=== PATIENT | female | born 1960 | race Caucasian/White ===

== ENCOUNTER 2020-06-15 10:16 | Outpatient (RCR) | payer OTHER, SELFPAY ==
--- NOTE | 2020-06-15 16:49 | PTOPEVAL ---
INITIAL PHYSICAL THERAPY EVALUATION and PLAN OF CARE Thank you for referring Natalya Tran to [facility].? Soledad is scheduled to be seen for physical therapy? 1x/week for 6 weeks. Please review, sign, date and return this plan of care ANJU. I agree with and certify that the following plan of care is medically necessary. Referring Physician Date Admitting Provider: Attending Provider: Marianna Lloyd DO Referring Provider: *PT Outpatient Evaluation Start: 06/15/20 10:37 Freq: Status: Active Protocol: Document 06/15/20 10:30 CECILIA (Rec: 06/15/20 12:06 CECILIA [id number]) Therapy Assessment Status Assessment Status Assessment Status Evaluation Outpatient Past Medical History Past Medical History Source of Past Medical History Patient Neurological History Hx Neurological Disorders No Significant History Cardiovascular History Hx Coronary Artery Bypass Graft Yes: 2008 4 CABG, 2013 4x CABG with mitral valve repair Hx Myocardial Infarction Yes Respiratory History Hx Pneumonia Yes: x2 Gastrointestinal History Hx Appendectomy Yes: as a child Hx Cholecystectomy Yes: in her late 20's,early 30 's Hx Gastroesophageal Reflux Disease Yes Musculoskeletal History Hx Joint Replacement Yes: R YESSICA Endocrine History Hx Hypothyroidism Yes HEENT History Hx Other HEENT Disorders Yes: tinnitius Reproductive History Hx Hysterectomy Yes: partial - with bladder suspension surgery Hx Tubal Ligation Yes Other History Hx MRSA Yes Hx Other Surgeries Yes: groin abcess - open wound x 11 months 06/2019 Evaluation Information Problem Diagnosis mixed urinary incontinence Onset 2019 Subjective Information pelvic exam last month - was Query Text:As Reported By Patient/ told that she has a prolapse, Family vaginal ultrasound - was informed that cyst on R ovary was gone Did have R groin discomfort, now more L sided discomfort and lower back pain . If sitting - if she feels the urge - when goes to sit up - will become incontinent - unable to stop flow. If standing up - if feels urge - depends on how much she has had to drink and when the last time she has gone - if she makes it to
--- NOTE | 2020-07-02 12:52 | PCPTNOTE ---
PHYSICAL THERAPY DISCHARGE SUMMARY Admitting Provider: Attending Provider: Marianna Lloyd DO Patient:Natalya Tran Date of :1960 Soledad has not returned for any further treatments since 06/15/2020. She called to cancel all of her appointments due to transportation issues. She was only seen for her initial evaluation. She will be discharged at this time. The goals have been not met. Thank you for referring Soledad to [facility]. Please review, sign, date and return this discharge summary ANJU. I have been updated about Soledad's current status and I agree with discharge from the above service at this time. Referring Physician Date
== END 2020-07-06 11:12 | disposition home or self-care (01) ==
LOC: ANHPT 10:16
PROVIDERS: PCP Internal Medicine; Visit Provider Obstetrics & Gynecology
DX: N39.46 Mixed incontinence (principal)
CPT/HCPCS: 97110; 97162

== ENCOUNTER 2022-06-06 09:35 | Outpatient (CLI) | payer OTHER, SELFPAY ==
[2022-06-06 20:51] LABS: Thyroid Stimulating Hormone Reflex 0.134 uIU/mL (0.465-4.68)
[2022-06-07 05:39] LABS: Free T4 Free Thyroxine Reflex 1.66 ng/dL (0.78-2.19)
[2022-06-07 07:21] LABS: Total Triiodothyronine (T3) 1.18 NG/ML (0.97-1.69)
== END 2022-06-06 09:36 | disposition home or self-care (01) ==
LOC: ANHGOSHLAB 09:42
PROVIDERS: PCP Family Medicine; Visit Provider Family Medicine
DX: E07.9 Disorder of thyroid, unspecified (principal)
CPT/HCPCS: 36415; 84439; 84443; 84480

== ENCOUNTER → 2022-06-06 09:53 | Outpatient (CLI) | payer OTHER, SELFPAY ==
--- NOTE | ~2022-06-06 | XR_ITS ---
EXAMINATION: XR hand LT min 3V, XR hand RT min 3V DATE: 06/06/2022 10:06 INDICATION: Finger pain TECHNIQUE: 1. Posteroanterior, oblique and lateral views of the left hand were obtained. 2. Posteroanterior, oblique and lateral views of the right hand were obtained. COMPARISON: None. FINDINGS: Alignment is normal at the bilateral hands and wrists. No fractures. Advanced osteoarthritis at the l eft first carpal metacarpal joint with remodeling of both the trapezium and base of the first metacar pal. Moderate osteoarthritis at the contralateral right first carpal metacarpal joint. Additional rel atively symmetric bilateral mild polyarticular osteoarthritis at the bilateral triscaphe, first and s econd metacarpophalangeal and a few distal interphalangeal joints. Mild likely degenerative cystic ch matthieu within sclerotic margins at the left lunate. Small amount of chondrocalcinosis at the ulnar side of the right wrist joint. No erosions to suggest an inflammatory arthritis. IMPRESSION: 1. Advanced osteoarthritis at the left and moderate osteoarthritis at the right first carpal metacarp al joints with otherwise typical pattern of mild polyarticular osteoarthritis at the bilateral hands. Reviewed, dictated and finalized at location A. IMPRESSION: 1. Advanced osteoarthritis at the left and moderate osteoarthritis at the right first carpal metacarpal joints with otherwise typical pattern of mild polyarti cular osteoarthritis at the bilateral hands.
== END ==
PROVIDERS: PCP Family Medicine; Visit Provider Family Medicine
DX: M19.041 Primary osteoarthritis, right hand (principal); M19.042 Primary osteoarthritis, left hand
CPT/HCPCS: 73130

== ENCOUNTER → 2022-07-22 10:28 | Outpatient (CLI) | payer OTHER, SELFPAY ==
--- NOTE | ~2022-07-22 | MM_ITS ---
EXAMINATION: MM screening isai BI w alexa HISTORY: Screening TECHNIQUE: Craniocaudal and mediolateral oblique 3-D tomosynthesis images were obtained and synthetic 2-D images were generated. CAD analysis was submitted and interpreted. COMPARISON: No prior mammogram is available for comparison at this institution. BREAST PARENCHYMAL COMPOSITION: The breasts are almost entirely fatty. FINDINGS: There is no evidence of suspicious mass, calcification, or architectural distortion to sugg est malignancy in either breast. There has been no suspicious interval change. IMPRESSION: 1. No mammographic evidence of malignancy. 2. Recommend routine screening mammography in one year. BI-RADS Category 1: Negative Reviewed, dictated and finalized at location B. 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
== END ==
PROVIDERS: PCP Family Medicine; Visit Provider Family Medicine
DX: Z12.31 Encounter for screening mammogram for malignant neoplasm of breast (principal)
CPT/HCPCS: 77063; 77067

== ENCOUNTER 2022-12-12 10:34 | Outpatient (CLI) | payer OTHER, SELFPAY ==
[2022-12-12 19:38] LABS: Alanine Aminotransferase 19 U/L (6-35); Albumin Level 4.3 g/dL (3.5-5.1); Alkaline Phosphatase 124 U/L (38-126); Anion Gap 3 mmol/L (8-16); Aspartate Amino Transferase 53 U/L (14-36); Bilirubin,Total 1.5 mg/dL (0.2-1.3); Blood Urea Nitrogen 13 mg/dL (7-17); Calcium 9.9 mg/dL (8.4-10.2); Carbon Dioxide 32 mmol/L (22-30); Chloride 105 mmol/L (98-107); Cholesterol 170 mg/dL (0-200); Estimated Glomerular Filt Rate > 60; Glucose 93 mg/dL (65-110); HDL Direct 87 mg/dL; Potassium 4.2 mmol/L (3.4-5.0); Sodium 140 mmol/L (137-145); Triglycerides 109 mg/dL (<150)
[2022-12-12 19:48] LABS: LDL Cholesterol Direct 59 mg/dL
[2022-12-12 20:25] LABS: Thyroid Stimulating Hormone Reflex < 0.015 uIU/mL (0.465-4.68)
[2022-12-12 21:45] LABS: Free T4 Free Thyroxine Reflex 1.63 ng/dL (0.78-2.19)
[2022-12-12 22:41] LABS: Total Triiodothyronine (T3) 1.12 NG/ML (0.97-1.69)
== END 2022-12-12 10:35 | disposition home or self-care (01) ==
LOC: ANHGOSHLAB 10:35
PROVIDERS: PCP Family Medicine; Visit Provider Family Medicine
DX: E07.9 Disorder of thyroid, unspecified (principal); E78.5 Hyperlipidemia, unspecified; I10 Essential (primary) hypertension
CPT/HCPCS: 36415; 80053; 80061; 84439; 84443; 84480

== ENCOUNTER → 2022-12-12 11:27 | Outpatient (CLI) | payer OTHER, SELFPAY ==
--- NOTE | ~2022-12-12 | XR_ITS ---
AP and oblique views of the left ribs Clinical History: Pain Findings: No rib fracture is seen. Osseous alignment is anatomic. Lungs are clear, without focal cons olidation or pleural effusion. Cardiomediastinal contour is mildly prominent, status post probable CA BG and cardiac valve replacement. Soft tissues are unremarkable. Impression: No rib fracture is seen. Reviewed, dictated and finalized at [facility]. Impression: No rib fracture is seen.
== END ==
PROVIDERS: PCP Family Medicine; Visit Provider Family Medicine
DX: R07.81 Pleurodynia (principal)
CPT/HCPCS: 71101

== ENCOUNTER 2023-07-09 11:50 | Outpatient (CLI) | payer OTHER, SELFPAY ==
[2023-07-09 19:49] LABS: Free T4 Free Thyroxine 1.01 ng/mL (0.78-2.19)
== END 2023-07-09 11:51 | disposition home or self-care (01) ==
LOC: ANHGOSHLAB 11:51
PROVIDERS: PCP Family Medicine; Visit Provider Family Medicine
DX: E03.9 Hypothyroidism, unspecified (principal)
CPT/HCPCS: 36415; 84439; 84443

== ENCOUNTER 2023-10-19 14:42 | Outpatient (CLI) | payer OTHER, SELFPAY ==
--- NOTE | ~2023-10-19 | XR_ITS ---
EXAMINATION: XR shoulder RT min 2V, XR humerus RT DATE: 10/19/2023 14:59 INDICATION: Right shoulder and arm pain post fall one week prior TECHNIQUE: 1. AP internally and externally rotated, AP oblique externally rotated and transscapular Y views of t he right shoulder were obtained. 2. Internal and externally rotated views of the right humerus were obtained. COMPARISON: None FINDINGS: Normal alignment. No fracture. Glenohumeral joint is normal. Mild right acromioclavicular and elbow osteoarthritis. Small subtle calcification projecting over over the joint space near the superior rim of the glenoid which could represent chondral calcinosis or other dystrophic soft tissue calcificati on. Soft tissues are otherwise unremarkable. No right elbow joint effusion. Median sternotomy wires a nd ostial markers consistent with prior coronary artery bypass grafting. Visualized portion of the ri ght lung is clear. IMPRESSION: Mild osteoarthritis at the right elbow and acromioclavicular joints. No acute osseous abnormality. Reviewed, dictated and finalized at location A. ING INSPECTOR IMPRESSION: Mild osteoarthritis at the right elbow and acromioclavicular joints. No acute o sseous abnormality.
== END 2023-10-19 14:43 ==
PROVIDERS: PCP Family Medicine; Visit Provider Family Medicine
DX: M19.011 Primary osteoarthritis, right shoulder (principal); W19.XXXA Unspecified fall, initial encounter
CPT/HCPCS: 73030; 73060

== ENCOUNTER 2024-01-14 11:55 | Outpatient (CLI) | payer OTHER, SELFPAY ==
[2024-01-14 19:39] LABS: Alanine Aminotransferase 14 U/L (6-35); Albumin Level 4.5 g/dL (3.5-5.1); Alkaline Phosphatase 103 U/L (38-126); Anion Gap 7 mmol/L (4-12); Aspartate Amino Transferase 50 U/L (14-36); Bilirubin,Total 1.2 mg/dL (0.2-1.3); Blood Urea Nitrogen 13 mg/dL (7-17); Calcium 9.6 mg/dL (8.4-10.2); Carbon Dioxide 27 mmol/L (22-30); Chloride 106 mmol/L (98-107); Cholesterol 177 mg/dL (0-200); Estimated Glomerular Filt Rate 50; Glucose 95 mg/dL (65-110); HDL Direct 87 mg/dL; Potassium 4.2 mmol/L (3.4-5.0); Sodium 140 mmol/L (137-145); Triglycerides 166 mg/dL (<150)
[2024-01-14 19:49] LABS: LDL Cholesterol Direct 70 mg/dL
[2024-01-14 20:23] LABS: Free T4 Free Thyroxine Reflex 0.97 ng/dL (0.78-2.19)
[2024-01-14 21:04] LABS: Total Triiodothyronine (T3) 0.96 NG/ML (0.97-1.69)
== END 2024-01-14 11:56 | disposition home or self-care (01) ==
LOC: ANHGOSHLAB 11:56
PROVIDERS: PCP Family Medicine; Visit Provider Family Medicine
DX: Z13.220 Encounter for screening for lipoid disorders (principal); Z13.228 Encounter for screening for other metabolic disorders; Z13.29 Encounter for screening for other suspected endocrine disorder
CPT/HCPCS: 36415; 80053; 80061; 84439; 84443; 84480

== ENCOUNTER 2024-01-31 09:16 | Outpatient (CLI) | payer OTHER, SELFPAY | END 2024-01-31 09:17 | disposition home or self-care (01) | LOC: ANHGOSHLAB 09:17 | PROVIDERS: PCP Family Medicine; Visit Provider Family Medicine | DX: E03.9 Hypothyroidism, unspecified (principal) | CPT/HCPCS: 36415; 84443 ==

== ENCOUNTER 2024-05-30 11:13 | Outpatient (CLI) | payer OTHER, SELFPAY ==
--- NOTE | ~2024-05-30 | CT_ITS ---
CT of the Abdomen and Pelvis: Indication: Abdominal pain Technique: 2.5 mm axial scans were obtained through the abdomen and pelvis following intravenous adm inistration of 100 cc of Omnipaque 350. Dose reduction technique was used on this scan by utilizing a utomated exposure control and iterative reconstruction technique. The dose-length product (DLP) was 1 224.69 mGy-cm. Findings: Scans through the lung bases are unremarkable. The liver, spleen, pancreas, adrenals and kidneys are within normal limits. Cholecystectomy clips are present. There are atherosclerotic calcifications of the aorta. No lymphadenopathy. No bowel obstruction. There is extensive colonic diverticulosis. There is mild inflammatory change ad jacent to the splenic flexure, suggestive of mild acute diverticulitis. No abscess or free air.. Images through the pelvis were performed. Urinary bladder unremarkable. No pelvic mass evident. Statu s post hysterectomy. No pelvic ascites. Impression: Mild acute diverticulitis at the splenic flexure region of the colon. Reviewed, dictated and finalized at [facility]. Impression: Mild acute diverticulitis at the splenic flexure region of the colon.
[2024-05-30 11:44] LABS: Estimated Glomerular Filt Rate 56
== END 2024-05-30 11:14 | disposition home or self-care (01) ==
PROVIDERS: PCP Family Medicine; Visit Provider Family Medicine
DX: K57.32 Diverticulitis of large intestine without perforation or abscess without bleeding (principal)
CPT/HCPCS: 74177; Q9967

== ENCOUNTER 2024-07-22 11:12 | Outpatient (CLI) | payer OTHER, SELFPAY ==
[2024-07-22 16:29] LABS: Free T4 Free Thyroxine 1.47 ng/dL (0.78-2.19)
== END 2024-07-22 11:13 | disposition home or self-care (01) ==
LOC: ANHGOSHLAB 11:13
PROVIDERS: PCP Family Medicine; Visit Provider Nurse Practitioner Family
DX: E03.9 Hypothyroidism, unspecified (principal)
CPT/HCPCS: 36415; 84439; 84443

== ENCOUNTER 2024-10-16 00:37 | Day surgery (SDC) | payer OTHER, SELFPAY ==
[2024-10-07 13:21] VITALS: BMI 32.2
--- NOTE | 2024-10-07 13:47 | PC.NURSE ---
Spoke with patient regarding medication Plavix. Patient verbalizes understanding that the last dose is to be taken on 10/11/2024 and the Endoscopist will instruct them when to restart after the procedure.
--- OUTSIDE RECORDS SUMMARY | 2024-10-16 00:39 | XMS_ITS | Clinical Summary ---
Author Organization [facility] Address [address] [place] [id number] Care Team Providers Care Looper Fixer Name Role Phone Tomi Florentino PT Unavailable Unavailable Lázaro Somers MD Unavailable [phone] Eren Chávez DO Primary Care Provider [phone] Allergies Active Allergy Reactions Criticality Noted Date Comments Adhesive Tape-Silicones Itching Low 03/05/2018 EKG leads cause itching also Codeine Other (See comments) Low hypersensitivity Diclofenac Chest tightness Medium 03/05/2018 Possible cause of heart attack Medications atorvastatin (LIPITOR) 20 mg tablet Take 1 tablet (20 mg total) by mouth nightly Active cetirizine (ZyrTEC) 10 mg tablet Take 1 tablet (10 mg total) by mouth nightly Active aspirin 81 mg tablet Take 1 tablet (81 mg total) by mouth daily Active ranolazine ER (RANEXA) 500 mg 12 hr tabletIndicatio ns:Chronic Stable Angina Pectoris Take 1 tablet (500 mg total) by mouth 2 (two) times a day. 60 tablet 8 Active clopidogrel (PLAVIX) 75 mg tablet Take 1 tablet (75 mg total) by mouth daily Active losartan (COZAAR) 100 mg tablet Take 1 tablet (100 mg total) by mouth daily [address] (PROTONIX) 40 mg EC tablet 3 Active biotin 5,000 mcg tablet,disinteg rating 1 tablet Active multivit-min/ir on fum/folic ac (ONE-A-DAY WOMEN'S COMPLETE ORAL) Take by mouth A ctive levothyroxine (SYNTHROID) 75 mcg tablet Take 1 tablet (75 mcg total) by mouth legal recruiter before breakfast Active Active Problems Problem Noted Date Diagnosed Date Cardiomyopathy, ischemic 08/07/2022 Essential hypertension 08/07/2022 Hypercholesteremia 08/07/2022 Other emphysema 08/07/2022 Hx of CABG 08/01/2022 S/P MVR (mitral valve repair) 08/01/2022 Primary osteoarthritis of right hip 03/10/2018 Chest pain due to coronary artery disease 2017 Coronary artery disease of n ative artery of [place] heart with stable angina pectoris 12/10/2017 Family history of mitral valve repair 12/10/2017 Atherosclerosis of coronary artery 08/15/2013 Resolved Problems Problem Noted Date Diagnosed Date Resolved Date Abscess of left groin 11/20/20182021 Myocardial infarction 03/19/20182017 Surgical History Surgery Date Site/Laterality Comments HYSTERECTOMY CHOLECYSTECTOMY FOOT SURGERY Right CORONARY ARTERY BYPASS GRAFT 2007, 2012 MITRAL VALVE REPAIR CORONARY ANGIOPLASTY APPENDECTOMY LAPAROSCOPY TOTAL HIP ARTHROPLASTY Right TUBAL LIGATION 1980 Medical History Medical History Date Comments Coronary artery disease Hypertension Hyperlipidemia Scoliosis Myocardial infarction (HCC) 11/2017 Valvular disease PONV (postoperative nausea and vomiting) COPD (chronic obstructive pulmonary disease) (HC C) GERD (gastroesophageal reflux disease) Constipation Hypothyroidism Depression Anxiety Arthritis Sciatica Vertigo Pulmonary emboli (HCC) DVT (deep venous thrombosis) (HCC) Atherosclerosis of coronary artery 08/15/2013 Diverticulitis Family History Medical History Relation Name Comments Diabetes Brother Jin Heart attack Brother Jin Alcohol abuse Father Luis Johnston Coronary artery disease Father Luis Johnston Fa arelis history of coronary artery disease - (Added by TW Conv) Depression Father Luis Johnston Heart attack Father Luis Johnston Heart disease Father Luis Johnston Diabetes Maternal Grandmother Sruthi Heart attack Maternal Grandmother Sruthi Coronary artery disease Mother Rere Johnston F amilmartha history of coronary artery disease - (Added by TW Conv) Diabetes Mother Rere Johnston Early Mother Rere Johnston Heart attack Mother Rere Johnston Heart disease Mother Rere Johnston Kidney disease Mother Rere Johnston Cancer Mother's Brother Ross Cancer Mother's Sister 1 Caroline Cancer Mother's Sister 2 Bruna Relation Name Status Comments Brother Jin Father Luis Johnston Maternal Grandmother Sruthi Mother Rere Johnston Mother's Brother Ross Mother's Sister 1 Caroline Mother's Sister 2 [place] Social History Tobacco Use Types Packs/Day Years Used Date Smoking Tobacco: Former Cigarettes 0.5 10 0 03/05/2007 - 03/05/2017 Smokeless Tobacco: Never Tobacco Cessation:Counseling Given: Not Answered Alcohol Use Standard Drinks/Week Comments Yes 0 (1 standard drink = 0.6 oz pur e alcohol) rarely Comments No Sex and Gender Information Value Date Recorded Sex Assigned at Not on file Legal Sex Female 6:[address] Gender Identity Female 07/25/2022 9:[address] Sexual Orientation Not on file Occupation Industry Job Start Date Job End Date retired Not on file Not on file Not on file Obstetrics History Last Filed Vital Signs Vital Sign Reading Time Taken Comments Blood Pressure 116/76 06/12/2024 2:12 PM CDT Pulse 66 06/12/2024 2:12 PM CDT Temperature 36.9 C (98.4 F) 03/14/2019 2:53 PM CDT Respiratory Rate 11 03/14/2019 4:50 PM CDT Oxygen Saturation 97% 06/12/2024 2:12 PM CDT Inhaled Oxygen Concentration - - Weight 82.1 kg (181 lb) 06/12/2024 2:12 PM CDT Height 154.9 cm (5' 1 ) 06/12/2024 2:12 PM CDT Body Mass Index 34.2 06/12/2024 2:12 PM CDT Plan of Treatment Health Maintenance Due Date Last Done Comments Breast Cancer Screening-Mammogram 1960 Colon Cancer Screening-Colonoscopy 1960 Depression Screening 1960 Hepatitis C Screening 1960 DTaP/Tdap/Td Vaccine (1 - Tdap) 02/09/1972 Hepatitis B Screening 1979 Regular Well Visit/Exam 18-64 1979 Pneumococcal vaccine <65 (2 of 2 - PCV) 09/13/2014 09/13/2013, 09/03/2012 Covid-19 Vaccine (2023-2 5 season) 2024 11/15/2020, 10/24/2020 Influenza Vaccine (#1) 2024 , 05/08/2020, 06/27/2019, Additional history exists Zoster Vaccine Completed 07/17/2020, 05/08/2020 Medical Devices Implanted Type Area Hammersmith Helper Device Identifier Shelf Expiration Date Model / Serial / Lot [employer] [id number] Trilogy 6.5mm 30mm Self Tap Acetabular Cortical Screw Bone - [id number] Implanted:Qty: 1 on 03/18/2018 by Jered Rudd MD at [facility] Screw Right: Hip [employer] 02/09/2027 [id number] / / [id number] [employer] [id number] G7 52mm Limit Hole Hip E Hemisphere Shell Acetabular Pps - [id number] Implanted:Qty: 1 on 03/18/2018 by Jered Rudd MD at [facility] Right: Hip [employer] 02/15/2028 [id number] / / [id number] Liner Acetabular G7 E1 E Id36 Mm Hip High Wall - [id number] Implanted:Qty: 1 on 03/18/2018 by Jered Rudd MD at [facility] Right: Hip [employer] 11/23/2022 [id number] / / [id number] [employer] [id number] G7 36mm Type 1 Hip -6mm Offset Head Femoral Cocr - [id number] Implanted:Qty: 1 on 03/18/2018 by Jered Rudd MD at [facility] Right: Hip [employer] [id number] 01/24/2028 [id number] / / [id number] [employer] [id number] Taperloc 134mm Type 1 Full Profile Hip 133d 7 High Offset Taper - [id number] Implanted:Qty: 1 on 03/18/2018 by Jered Rudd MD at [facility] Right: Hip [employer] [id number] 12/11/2023 [id number] / / [id number] Insurance [place] [address] [place] [address] CLAIMS Advance Directives For more information, please contact: [phone] * Full Code (Latest Code Status on File) Date Activated Date Inactivated Comments 10/05/2018 5:25 PM 10/08/2018 8:41 PM * Full Code Date Activated Date Inactivated Comments 03/18/2018 1:45 PM 03/20/2018 4:36 PM * Full Code Date Activated Date Inactivated Comments 12/09/2017 3:38 PM 12/14/2017 12:34 AM Care Teams Looper Fixer Relationship Specialty Start Date End Date Eren Chávez DO PCP - General Family Medicine 01/16/23 Tomi Florentino, PT Physical Therapist Physical Therapy 02/11/18 Lázaro Somers MD Surgeon Trauma Surgery 10/08/18
--- OUTSIDE RECORDS SUMMARY | 2024-10-16 00:40 | XMS_ITS | Clinical Summary ---
Author Organization [facility] Address [address] [place] [id number] Care Team Providers Care Armature Repairer Name Role Phone ElliotEren rivera Primary Care Provider [phone] Social History Tobacco Use Types Packs/Day Years Used Date Smoking Tobacco: Never Assessed Comments Unknown Sex and Gender Information Value Date Recorded Sex Assigned at Not on file Legal Sex Female 2:49 PM CDT Gender Identity Not on file Sexual Orientation Not on file Plan of Treatment Health Maintenance Due Date Last Done Comments Cervical Cancer Screening Pap Smear (Age 30 to 64) Every 3 Years 1960 Colorectal Cancer Screening Colonoscopy (10 Years) 1960 Annual Physical 02/09/1964 Hepatitis C 1979 DTaP, Tdap and Td Vaccines (1 - Tdap) 02/09/1980 Cervical Cancer Screening Pap with HPV Testing (Age 30 to 64) Every 5 Years 1991 Cervical Cancer Screening with HPV 1991 Mammogram Screening 2001 COVID-19 Vaccine ( season) 2024 11/15/2020, 10/24/2020 Influenza Adult (#1) 2024 07/09/2023, 06/06/2022, 04/21/2021, Additional history exists RSV Immunization or 60+ Years (1 - 1-dose 75+ series) 02/09/2036 Pneumococcal Vaccine: Pediatrics (0 to 5 Years) and At-Risk Patients (6 to 64 Years) Aged Out 09/13/2013, 09/03/2012 No longer eligibl e based on patient's age to complete this topic Zoster Vaccines Completed 07/17/2020, 05/08/2020 Meningococcal B Vaccine Aged Out No l onger eligible based on patient's age to complete this topic Meningococcal Vaccine Aged Out No gloria dimas eligible based on patient's age to complete this topic RSV Immunizations Under 20 Months Aged Out No longer eligible based on patient's age to complete this topic [place] [address] [place] [address] Care Teams Armature Repairer Relationship Specialty Start Date End Date Eren Chávez DO [facility] [address] [address] PCP - General FAMILY PRACTICE 10/25/23
--- OUTSIDE RECORDS SUMMARY | 2024-10-16 00:40 | XMS_ITS | Referral Summary ---
Author Organization [facility] Address [address] [place] [id number] Care Team Providers Care Spectrographer Name Role Phone Tomi Florentino PT Unavailable Unavailable Lázaro Somers MD Unavailable [phone] Eren Chávez DO Primary Care Provider [phone] Allergies Active Allergy Reactions Criticality Noted Date [...] 1 tablet (75 mcg total) by mouth psychologist research assistant before breakfast Active Active Problems Problem Noted Date Diagnosed Date Cardiomyopathy, ischemic 08/07/2022 Essential hypertension 08/07/2022 Hypercholesteremia 08/07/2022 Other emphysema 08/07/2022 Hx of CABG 08/01/2022 S/P MVR (mitral valve repair) 08/01/2022 Primary osteoarthritis of right hip 03/10/2018 Chest pain due to coronary artery disease 2017 Coronary artery disease of n ative artery of [place] heart with stable angina pectoris 12/10/2017 Family history of mitral valve repair 12/10/2017 Atherosclerosis of coronary artery 08/15/2013 Resolved Problems Problem Noted Date Diagnosed Date Resolved Date Abscess of left groin 11/20/20182021 Myocardial infarction 03/19/20182017 Social History Tobacco Use Types Packs/Day Years [...] on file Legal Sex Female 6:01 PM GAS PUMPER Gender Identity Female 07/25/2022 9:56 AM GAS PUMPER Sexual Orientation Not on file Occupation Industry Job Start Date Job End Date retired Not on file Not on file Not on file Last Filed Vital Signs Vital Sign Reading [...] 06/12/2024 2:12 PM CDT Plan of Treatment Not on file Medical Devices Implanted Type Area Food Vendor Device Identifier Shelf Expiration Date Model / Serial / Lot [employer] [id number] Trilogy 6.5mm 30mm Self Tap Acetabular Cortical Screw Bone - [id number] Implanted:Qty: 1 on 03/18/2018 by Jered Rudd MD at [facility] Screw Right: Hip [employer] 02/09/2027 [id number] / / [id number] [employer] [id number] G7 52mm Limit Hole Hip E Hemisphere Shell Acetabular Pps - [id number] Implanted:Qty: 1 on 03/18/2018 by Jered Rudd MD at [facility] Right: Hip [employer] 02/15/2028 [id number] / / [id number] Liner Acetabular G7 E1 E Id36 Mm Hip High Wall - [id number] Implanted:Qty: 1 on 03/18/2018 by Jered Rudd MD at [facility] Right: Hip [employer] 11/23/2022 [id number] / / [id number] [employer] [id number] G7 36mm Type 1 Hip -6mm Offset Head Femoral Cocr - [id number] Implanted:Qty: 1 on 03/18/2018 by Jered Rudd MD at [facility] Right: Hip [employer] [id number] 01/24/2028 [id number] / / [id number] [employer] [id number] Taperloc 134mm Type 1 Full Profile Hip 133d 7 High Offset Taper - [id number] Implanted:Qty: 1 on 03/18/2018 by Jered Rudd MD at [facility] Right: Hip [employer] [id number] 12/11/2023 [id number] / / [id number] Insurance CLAIMS CLAIMS [facility] CLAIMS Advance Directives For more information, please contact: [phone] * Full Code (Latest Code Status on File) Date Activated Date Inactivated Comments 10/05/2018 5:25 PM 10/08/2018 8:41 PM * Full Code Date Activated Date Inactivated Comments 03/18/2018 1:45 PM 03/20/2018 4:36 PM * Full Code Date Activated Date Inactivated Comments 12/09/2017 3:38 PM 12/14/2017 12:34 AM Care Teams Spectrographer Relationship Specialty Start Date End Date Eren Chávez DO PCP - General Family Medicine 01/16/23 Tomi Florentino, PT Physical Therapist Physical Therapy 02/11/18 Lázaro Somers MD Surgeon Trauma Surgery 10/08/18
--- OUTSIDE RECORDS SUMMARY | 2024-10-16 00:40 | XMS_ITS | CONTINUITY OF CARE DOCUMENT ---
Author Name jaylyn de la o Address Unknown Organization [facility] Address [address] [address] [facility] [address] [place] [address] Phone [phone] Care Team Providers Care Shake Table Operator Name Role Phone Frederick JUDD, Madan Unavailable [phone] Frederick JUDD, Madan Unavailable [phone] Socorro JUDD, Vicki Unavailable [phone] PROBLEMS Condition Status Date Provider Notes Bradycardia active Aileen Chrun HYPOTHYROIDISM active [place] Stahlschmidt CHEST PAIN-10/22 NUC NEG completed - Madan murphy MD HTN ESSENTIAL active ? Madan Mack MD TOBACCO ABUSE active ? Madan Mack MD CABG-07/25 CATH ABN 12/19 LOPEZ-LAD,SVG-1DIAG,SVG-OM,SVG- RCA completed - Madan Mack MD CAD-11/20 CAROTID NL completed - Madan Pimentel DYSLIPIDEMIA active Lacretia Diego BANKRUPTCY PARALEGAL SHORTNESS OF BREATH- 07/25 T EE ABN MOD TO SEVERE MR active ? 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 S/P MV RING active Madan Mack MD CABG, HX OF-08/26 REDO SVG- O M, SVG-LAD, RA-PDA- MVR completed - Madan Mack MD PE- POST SURGERY IN AUG completed - Madan murphy MD DVT- POST SURGERY IN AUG completed - Madan baires MD DIZZINESS completed - Madan Mack MD TIA active Roel Patel MD CADCABG, HX OF-08/26 REDO SVG - OM, SVG-LAD, RA-PDA- MVR, cath 12/10/17 patent grafts 100% OM2 s/p stent, EF 40% active Madan Mack MD ARTHRITIS, severe active Madan Mack MD Scoliosis active Madan Mack MD Obesity active Madan Mack MD ENCOUNTERS Date Type Provider Location Encounter Diag nosis - In-person encounter Office Visit Madan Mack MD [facility] - In-person encounter Office Visit Madan Mack MD [facility] - In-person encounter Office Visit Madan Mack MD [facility] ARTHRITIS, severeScoliosisObesity - In-person encounter Office Visit Madna Mack MD [facility] CABG-07/25 CATH ABN 12/19 LOPEZ-LAD,SVG-1DIAG,SVG-OM,SV G- RCACAD-11/20 CAROTID NLCABG, HX OF-08/26 REDO SVG- OM, SVG-LAD, RA-PDA- MVRCADCABG, HX OF-08/26 REDO SVG- OM, SVG-LAD, RA-PDA- MVR, cath 12/10/17 patent grafts 100% OM2 s/p stent, EF 40% - In-person encounter Office Visit Madan Mack MD [facility] - In-person encounter Office Visit Madan Mack MD [facility] - In-person encounter Office Visit Madan Mack MD [facility] CHEST PAIN-10/22 NUC NEGHTN ESSENTIALPULMONARY EMBOLISM ,DVT Off XARELTO 04/26PE- [facility]person [facility] Office Visit Madan Mack MD [facility] - In-person encounter Office Visit Roel Patel MD [facility] TIA - In-person encounter Office Visit Madan Mack MD [facility] PULMONARY EMBOLISM ,DVT Off XARELTO 04/26MITRAL REGURG, MODERATE TO SEVERE S/P MV RING - In-person encounter Office Visit Madan Mack MD [facility] SHORTNESS OF BREATH- 07/25 GILMA ABN MOD TO SEVERE MR - In-person encounter Office Visit Madan Mack MD [facility] - In-person encounter Office Visit Madan Mack MD [facility] - In-person encounter Office Visit Madan Mack MD [facility] SHORTNESS OF BREATH- 07/25 GILMA ABN MOD TO SEVERE MR - In-person encounter Office Visit Madan Mack MD [facility] - In-person encounter Office Visit Madan Mack MD [facility] - In-person encounter Office Visit Madan Mack MD [facility] - In-person encounter Office Visit Madan Mack MD [facility] TOBACCO ABUSE - In-person encounter Office Visit Madan Mack MD [facility] - In-person encounter Office Visit King Grace MD [facility] DYSLIPIDEMIA - In-person encounter Office Visit Madan Mack MD [facility] - In-person encounter Office Visit Madan Mack MD [facility] - In-person encounter Office Visit Madan Mack MD [facility] - In-person encounter Office Visit Madan Mack MD [facility] - In-person encounter Office Visit Madan Mack MD [facility] - In-person encounter Office Visit Clifton Hough MD [facility] TOBACCO ABUSECABG-07/25 CATH ABN 12/19 LOPEZ-LAD,SVG-1DIAG,SVG-OM,SV G- RCA VITAL SIGNS Date Observation Value Provider Body Mass Index (Ratio) 41.15 kg/m2 Hamlet Mack MD blood pressure, diastolic 60 mm[Hg] [facility], [facility] 100 mm[Hg] Charly perez Chapman oxygen saturation, oximetry 98 % [facility] respiratory rate E&M 16 /min Madhu Chapman pulse rate 92 /min [place] Chapman weight E&M 225 [lb_av] Madhu Chapman height E&M 62 [in_i] [place] Chapman Body Mass Index (Ratio) 40.23 kg/m2 Hamlet Mack MD blood pressure, diastolic 80 mm[Hg] Da abbie Geoffrey blood pressure, systolic 112 mm[Hg] Dac ia Geoffrey oxygen saturation, oximetry 96 % Hanna Geoffrey respiratory rate E&M 18 /min Hanna V oss pulse rate 88 /min Hanna Geoffrey weight E&M 220 [lb_av] Hanna Geoffrey height E&M 62 [in_i] Hanna Geoffrey Body Mass Index (Ratio) 39.72 kg/m2 Hamlet Mack MD blood pressure, cuff size large Ke rri Julianuenebon blood pressure, diastolic 86 mm[Hg] Ke rri Julianuenenfeldbassam blood pressure, systolic 134 mm[Hg] Ker ri Desi oxygen saturation, oximetry 96 % Fiordaliza Desi respiratory rate E&M 18 /min Fiordaliza G nannette pulse rate 68 /min Fiordaliza Tamayoe [facility] weight E&M 217.2 [lb_av] Fiordaliza Tamayo altagracia height E&M 62 [in_i] Fiordaliza Jenkins [facility] Body Mass Index (Ratio) 39.69 kg/m2 Hamlet Mack MD blood pressure, cuff size large Ke rri Ronigrace cottage hospitaler blood pressure, diastolic 90 mm[Hg] Ke rri Ronigr[facility] cottage hospitaler blood pressure, systolic 140 mm[Hg] Cheo ri [facility] oxygen saturation, oximetry 97 % Fiordaliza Tamayoaltagracia respiratory rate E&M 24 /min Fiordaliza Evans est[facility] hospitalbassam pulse rate 84 /min Fiordaliza Jenkins [facility] weight E&M 217 [lb_av] Fiordaliza Jenkins [facility] height E&M 62 [in_i] Fiordaliza Jenkins [facility] blood pressure, diastolic 81 mm[Hg] Me khan Porter blood pressure, systolic 132 mm[Hg] Nona mercado Porter Body Mass Index (Ratio) 40.42 kg/m2 Keyanna maxwell Porter pulse rate 70 /min Stephanie Porter oxygen saturation, oximetry 97 % Stephanie Porter respiratory rate E&M 14 /min Stephanie Porter weight E&M 221 [lb_av] Stephanie Porter Body Mass Index (Ratio) 39.06 kg/m2 José Antonio Weiss NP weight E&M 213.6 [lb_av] Vivian Weiss NP blood pressure, diastolic 84 mm[Hg] River Michaels blood pressure, systolic 135 mm[Hg] Binh Michaels Body Mass Index (Ratio) 37.13 kg/m2 Juana Michaels pulse rate 73 /min Ailyn Michaels oxygen saturation, oximetry 98 % Ailyn Michaels respiratory rate E&M 16 /min Ailyn Michaels weight E&M 203 [lb_av] Ailyn Michaels Body Mass Index (Ratio) 36.16 kg/m2 Keyanna maxwell Porter blood pressure, diastolic 66 mm[Hg] Me khan Porter blood pressure, systolic 95 mm[Hg] Nona Porter pulse rate 66 /min Stephanie Porter oxygen saturation, oximetry 97 % Stephanie Porter respiratory rate E&M 14 /min Stephaine Porter weight E&M 197 [lb_av] Stephanie Porter blood pressure, diastolic 89 mm[Hg] Jae Malhotra RN blood pressure, systolic 129 mm[Hg] Navarro Malhotra RN pulse rate 74 /min Navarro Malhotra RN oxygen saturation, oximetry 98 % Navarro Malhotra RN respiratory rate E&M 16 /min Navarro lomax RN Body Mass Index (Ratio) 35.24 kg/m2 Navarro Malhotra RN weight E&M 192 [lb_av] Navarro Malhotra RN Body Mass Index (Ratio) 35.83 kg/m2 Rivas Mishra blood pressure, diastolic 80 mm[Hg] Bright Mishra blood pressure, systolic 114 mm[Hg] Conrad Mishra pulse rate 84 /min Mckayla Mishra oxygen saturation, oximetry 97 % Mckayla Mishra respiratory rate E&M 20 /min Mckayla Mishra weight E&M 195.2 [lb_av] Mckayla Mishra blood pressure, diastolic 93 mm[Hg] Jae Malhotra RN blood pressure, systolic 124 mm[Hg] Navarro Malhotra RN pulse rate 86 /min Navarro Malhotra RN oxygen saturation, oximetry 98 % Navarro Malhotra RN respiratory rate E&M 18 /min Navarro pickering RN Body Mass Index (Ratio) 38.55 kg/m2 Navarro Menas RN weight E&M 210 [lb_av] Navarro Menas RN Body Mass Index (Ratio) 38.55 kg/m2 Lokesh da Ventimiglia [facility] weight E&M 210 [lb_av] Cheryl Ventimig ishan [facility] Body Mass Index (Ratio) 38.18 kg/m2 Navarro Menas RN blood pressure, diastolic 95 mm[Hg] Jae luis [facility] blood [facility], systolic 138 mm[Hg] Navarro Menas RN pulse rate 88 /min Navarro [facility] oxygen saturation, oximetry 96 % Navarro Menas RN respiratory rate E&M 15 /min Navarro pickering RN weight E&M 208 [lb_av] Navarro Menas RN Body Mass Index (Ratio) 35.79 kg/m2 Delgadillo i Desi blood pressure, diastolic 98 mm[Hg] Shankar felixi Desi blood pressure, systolic 149 mm[Hg] Cheo Weeks pulse rate 85 /min Fiordaliza Jenkins lder oxygen saturation, oximetry 97 % Fiordaliza Weeks respiratory rate E&M 17 /min Fiordaliza brunson weight E&M 195 [lb_av] Fiordaliza Jenkins lder weight E&M 171 [lb_av] Nadia Lai NP blood pressure, diastolic, standing 82 mm [Hg] Zylisha Bran blood pressure, systolic, standing 110 mm [Hg] Zylisha Bran blood pressure, diastolic 78 mm[Hg] Zy get Bran blood pressure, systolic 110 mm[Hg] Zyl mary Bran blood pressure, diastolic, supine 76 mm[H g] Gavin Sotomayor blood pressure, systolic, supine E&M 118 mm[Hg] Gavin Sotomayor pulse rate 83 /min Gavin Sotomayor oxygen saturation, oximetry 96 % Gavin Sotomayor respiratory rate E&M 16 /min Gavin Sotomayor weight E&M 161 [lb_av] Gavin Sotomayor blood pressure, diastolic 80 mm[Hg] Cummins blood pressure, systolic 102 mm[Hg] Nii Easton pulse rate 90 /min Miguel Nietoran oxygen saturation, oximetry 96 % Miguel Nietoran respiratory rate E&M 16 /min Miguel Nietoran weight E&M 180 [lb_av] Miguel Nietoran blood pressure, diastolic 94 mm[Hg] [facility] O'Laz blood pressure, systolic 136 mm[Hg] [facility] O'Laz pulse rate 84 /min [facility] O'Laz oxygen saturation, oximetry 98 % Melany O'Laz respiratory rate E&M 18 /min Melany O'Laz weight E&M 174 [lb_av] [facility] O'Laz Body Mass Index (Ratio) 32.86 kg/m2 Carmelo Cortez BANKRUPTCY PARALEGAL weight E&M 179 [lb_av] Toni dela cruz [employer]ANKRUPTCY [place]ALEGAL height E&M 62 [in_i] Toni dela cruz BANKRUPTCY PARALEGAL blood pressure, diastolic 80 mm[Hg] An seph [place] blood pressure, systolic 112 mm[Hg] Hubert mevrin [place] pulse rate 86 /min Luis [place] oxygen saturation, oximetry 97 % Luis [place] respiratory rate E&M 16 /min Luis [place] weight E&M 179 [lb_av] Luis [place] blood pressure, diastolic 84 mm[Hg] Jae Malhotra RN blood pressure, systolic 122 mm[Hg] Navarro Malhotra RN pulse rate 88 /min Navarro Malhotra RN oxygen saturation, oximetry 97 % Navarro Malhotra RN respiratory rate E&M 18 /min Navarro lomax RN weight E&M 174 [lb_av] Navarro Malhotra RN blood pressure, diastolic 83 mm[Hg] Da amilcar Ayon blood pressure, systolic 121 mm[Hg] Milton Ayon pulse rate 85 /min Kari Ayon oxygen saturation, oximetry 97 % Kari Ayon respiratory rate E&M 16 /min Paolo Ayon weight E&M 179 [lb_av] Kari Ayon blood pressure, diastolic, left arm 86 mm [Hg] Luis [place] blood pressure, systolic, left arm 118 mm [Hg] Luis [place] blood pressure, diastolic, right arm 82 m m[Hg] Luis [place] blood pressure, systolic, right arm 114 m m[Hg] Luis [place] blood pressure, diastolic 82 mm[Hg] An seph [place] blood pressure, systolic 114 mm[Hg] Hubert eph [place] pulse rate 83 /min Luis [place] oxygen saturation, oximetry 99 % Luis [place] respiratory rate E&M 16 /min Luis [place] weight E&M 174 [lb_av] Luis [place] blood pressure, diastolic 98 mm[Hg] An seph [place] blood pressure, systolic 144 mm[Hg] Hubert eph [place] pulse rate 76 /min Luis [place] oxygen saturation, oximetry 98 % Luis [place] respiratory rate E&M 16 /min Luis [place] weight E&M 170 [lb_av] Luis Enrique blood pressure, diastolic 85 mm[Hg] Jae luis e Malhotra RN blood pressure, systolic 127 mm[Hg] Navarro Malhotra RN pulse rate 63 /min Navarro Malhotra RN oxygen saturation, oximetry 100 % Navarro Malhotra RN respiratory rate E&M 16 /min Navarro lomax RN weight E&M 176 [lb_av] Navarro Malhotra RN RESULTS Date Observation Value Provider Reference Range Interpretation Location thyroid stimulating hormone, serum 0.601 u[IU]/mL [facility] 0.450-4.500 cholesterol/HDL ratio, serum 3.0 [facility] BANKRUPTCY [place]GAL triglyceride, serum, fasting 148 mg/dL [facility] [employer] [place] HDL cholesterol, serum 49 mg/dL [facility] [place] LDL cholesterol, serum 71 mg/dL [facility] [place] cholesterol, serum 150 mg/dL [facility] [place] triglyceride, target level 150 mg/dL [facility] [employer] [place] HDL cholesterol, serum, target level 40 mg/dL [facility] [employer] [place]GAL LDL target level 100 mg/dL [facility] [employer] [place] cholesterol, target level 200 mg/dL [facility] [employer] [place] TOTAL NON-HDL-C (LDL VLDL) 106 [facility] cholesterol/HDL ratio, serum 3 Cheryl Ventimiglia [facility] cholesterol, serum 157 mg/dL [place] Ventimiglia [facility] triglyceride, target level 150 mg/dL Cheryl Ventimiglia [facility] HDL cholesterol, serum, target level 40 mg/dL Cheryl Ventimiglia [facility] triglyceride, serum, fasting 113 mg/dL Cheryl Ventimiglia [facility] Normal HDL cholesterol, serum 52 mg/dL Cheryl Ventimiglia [facility] Normal LDL cholesterol, serum 83 mg/dL Cheryl Ventimiglia [facility] Normal LDL target level 100 mg/dL [facility] cholesterol, target level 200 mg/dL [facility] TOTAL NON-HDL-C (LDL VLDL) 75 [facility] cholesterol/HDL ratio, serum 2.6 [facility] triglyceride, serum, fasting 144 mg/dL [facility] HDL cholesterol, serum 46 mg/dL [facility] LDL cholesterol, serum 46 mg/dL [facility] cholesterol, serum 121 mg/dL [facility] TOTAL NON-HDL-C (LDL VLDL) 162 [facility] alanine aminotransferase (SGPT), serum 26 1/L [facility] aspartate aminotransferase (SGOT), serum 23 1/L [facility] cholesterol/HDL ratio, serum 5.1 [facility] triglyceride, serum, fasting 187 mg/dL [facility] HDL cholesterol, serum 39 mg/dL [facility] LDL cholesterol, serum 125 mg/dL [facility] cholesterol, serum 202 mg/dL [facility] LDL target level 70 mg/dL [facility] basophils as percent of blood leukocytes 0.5 % [facility] Normal eosinophils as percent of blood leukocytes 0.0 % [facility] Normal monocyte count, blood 8.5 % [facility] Normal lymphocyte count, blood 28.4 % [facility] Normal neutrophils as percent of blood leukocytes 62.6 % [facility] Normal basophils, absolute, manual 38 cells/mcL [facility] 0-200 Normal eosinophils, absolute, manual 0 cells/mcL [facility] 15-500 Low monocytes, absolute, manual 646 cells/mcL [facility] 200-950 Normal lymphocytes, absolute 2158 CELLS/UL [facility] 850-3900 Normal Absolute Neutrophil count 4758 cells/mcL [facility] 2280-6356 Normal platelet count 280 THOUSAND/UL [facility] 140-400 Normal red blood cell distribution width 13.5 % [facility] 11.0-15.0 Normal mean corpuscular hemoglobin concentration, RBC 34.5 G/DL [facility] 32.0-36.0 Normal mean corpuscular hemoglobin, RBC 32.5 pg [facility] 27.0-33.0 Normal mean corpuscular volume, RBC 94.1 fL [facility] 80.0-100.0 Normal hematocrit, blood 41.3 % [facility] 35.0-45.0 Normal hemoglobin electrophoresis, blood 14.3 [facility] 11.7-15.5 Normal erythrocyte (RBC) count 4.39 MILLION/UL [facility] 3.80-5.10 Normal leukocyte (white blood cells) count, blood 7.6 THOUSAND/UL [facility] 3.8-10.8 Normal alanine aminotransferase (SGPT), serum 19 1/L [facility] 6-40 Normal aspartate aminotransferase (SGOT), serum 16 1/L [facility] 10-35 Normal alkaline phosphatase, serum 93 1/L [facility] 33-130 Normal bilirubin, serum, total 1.2 mg/dL [facility] 0.2-1.2 Normal albumin/globulin ratio, serum 2.0 (calc) [facility] 1.0-2.1 Normal globulins, serum, total 2.1 G/DL (CALC) [facility] 2.2-3.9 Low albumin, serum 4.2 g/dL [facility] 3.6-5.1 Normal protein, total, serum 6.3 g/dL [facility] 6.2-8.3 Normal calcium, serum 9.8 mg/dL [facility] 8.6-10.4 Normal carbon dioxide, venous blood 25 mmol/L [facility] 21-33 Normal chloride, serum 105 mmol/L [facility] 98-110 Normal potassium, serum 4.4 mmol/L [facility] 3.5-5.3 Normal sodium, serum 141 mmol/L [facility] 135-146 Normal urea nitrogen/creatinin e ratio, serum NOT APPLICABLE (calc) [facility] 6-22 Estimated Glomerular Filtration Rate (calc) 106 mL/min/{1.73 _m2} [facility] > OR = 60 Normal creatinine, serum 0.76 mg/dL [facility] 0.50-1.05 Normal urea nitrogen, blood 17 mg/dL [facility] 7-25 Normal blood glucose, random 100 mg/dL [facility] 65-99 High thyroid stimulating hormone, serum <0.01 mIU/L [facility] Low free thyroxine index 3.6 [facility] 1.4-3.8 Normal thyroxine, serum, total 10.5 ug/dL [facility] 4.5-12.0 Normal triiodothyronine resin uptake 34 % [facility] 22-35 Normal cholesterol/HDL ratio, serum, percent 3.3 (calc) [facility] < OR = 5.0 Normal LDL cholesterol, serum 93 MG/DL (CALC) [facility] <130 Normal triglyceride, serum, fasting 155 mg/dL [facility] <150 High HDL cholesterol, serum 55 mg/dL [facility] > OR = 46 Normal cholesterol, serum 179 mg/dL [facility] 125-200 Normal TOTAL NON-HDL-C (LDL VLDL) 116 Lacretia Diego [employer] alanine aminotransferase (SGPT), serum 17 1/L Lacretia Diego [employer] [place] aspartate aminotransferase (SGOT), serum 21 1/L Lacretia Diego [employer] [place] cholesterol/HDL ratio, serum 3.7 Lacretia Cortez [employer]RUPT[employer] [place]GAL triglyceride, serum, fasting 120 mg/dL Lacretia Diego [employer]RUPT[employer] [place] HDL cholesterol, serum 44 mg/dL Toni Cortez BANKRUPTCY [place]GAL LDL cholesterol, serum 92 mg/dL Toni Cortez [employer]RUPTCY [place]GAL cholesterol, serum 159 mg/dL Toni Cortez [employer]RUPT[employer] [place]GAL triglyceride, target level 150 mg/dL Toni Cortez [employer]RUPTCY [place]GAL HDL cholesterol, serum, target level 40 mg/dL Toni Cortez [employer] [place] LDL target level 100 mg/dL Lacralfredo Cortez [employer]RUPT[employer] [place]GAL cholesterol, target level 200 mg/dL Toni Cortez [employer] [place] basophils as percent of blood leukocytes 0.2 % [facility] Normal eosinophils as percent of blood leukocytes 0.0 % [facility] Normal monocyte count, blood 7.1 % [facility] Normal lymphocyte count, blood 27.6 % [facility] Normal neutrophils as percent of blood leukocytes 65.1 % [facility] Normal basophils, absolute, manual 19 cells/mcL [facility] (0-200) Normal eosinophils, absolute, manual 0 cells/mcL [facility] (15-500) Low monocytes, absolute, manual 689 cells/mcL [facility] (200-950) Normal lymphocytes, absolute 2677 CELLS/UL [facility] (850-3900) Normal Absolute Neutrophil count 6315 cells/mcL [facility] (2682-4717) Normal platelet count 271 THOUSAND/UL [facility] (140-400) Normal red blood cell distribution width 13.4 % [facility] (11.0-15.0) Normal mean corpuscular hemoglobin concentration, RBC 33.6 G/DL [facility] (32.0-36.0) Normal mean corpuscular hemoglobin, RBC 32.9 pg [facility] (27.0-33.0) Normal mean corpuscular volume, RBC 98.0 fL [facility] (80.0-100.0 ) Normal hematocrit, blood 45.6 % [facility] (35.0-45.0) High hemoglobin electrophoresis, blood 15.3 [facility] (11.7-15.5) Normal erythrocyte (RBC) count 4.66 MILLION/UL [facility] (3.80-5.10) Normal leukocyte (white blood cells) count, blood 9.7 THOUSAND/UL [facility] (3.8-10.8) Normal alanine aminotransferase (SGPT), serum 14 1/L [facility] (6-40) Normal aspartate aminotransferase (SGOT), serum 16 1/L [facility] (10-35) Normal alkaline phosphatase, serum 125 1/L [facility] (33-130) Normal bilirubin, serum, total 0.6 mg/dL [facility] (0.2-1.2) Normal albumin/globulin ratio, serum 1.8 (calc) [facility] (1.0-2.1) Normal globulins, serum, total 2.3 G/DL (CALC) [facility] (2.2-3.9) Normal albumin, serum 4.1 g/dL [facility] (3.6-5.1) Normal protein, total, serum 6.4 g/dL [facility] (6.2-8.3) Normal calcium, serum 9.8 mg/dL [facility] (8.6-10.2) Normal carbon dioxide, venous blood 24 mmol/L [facility] (21-33) Normal chloride, serum 105 mmol/L [facility] (98-110) Normal potassium, serum 4.5 mmol/L [facility] (3.5-5.3) Normal sodium, serum 140 mmol/L [facility] (135-146) Normal urea nitrogen/creatinin e ratio, serum NOT APPLICABLE (calc) [facility] (6-22) Estimated Glomerular Filtration Rate (calc) 95 mL/min/{1.73 _m2} [facility] (> OR = 60) Normal creatinine, serum 0.83 mg/dL [facility] (0.60-1.10) Normal urea nitrogen, blood 16 mg/dL [facility] (7-25) Normal blood glucose, random 86 mg/dL [facility] (65-99) Normal thyroid stimulating hormone, serum 0.02 u[IU]/mL [facility] Low free thyroxine index 3.5 [facility] (1.4-3.8) Normal thyroxine, serum, total 10.0 ug/dL [facility] (4.5-12.0) Normal triiodothyronine resin uptake 35 % [facility] (22-35) Normal cholesterol/HDL ratio, serum, percent 4.7 (calc) [facility] (< OR = 5.0) Normal LDL cholesterol, serum 164 MG/DL (CALC) [facility] (<130) High triglyceride, serum, fasting 187 mg/dL [facility] (<150) High HDL cholesterol, serum 54 mg/dL [facility] (> OR = 46) Normal cholesterol, serum 255 mg/dL [facility] (125-200) High HISTORY OF MEDICATION USE Medication Status Instructions Dates Provider Indications Com nakia WEST 15 MG ORAL TABLET completed one pill daily 01/21 - 11/19 [place] Adela PappasYRTEC ALLERGY CAPSULE active once a day 01/21 Fiordaliza Weeks PLAVIX 75 MG ORAL TABLET active ONE TAB. DAILY 12/24 Fiordaliza Weeks DICLOFENAC POTASSIUM TABLET completed 35 mg at night 12/24 - 01/21 Fiordaliza Weeks RANEXA 500 MG ORAL TABLET EXTENDED RELEASE 12 HOUR active ONE TAB. TWICE DAILY for chronic angina 12/24 Fiordaliza Weeks SKYLAR ALLERGY 180 MG ORAL TABLET completed ONCE DAILY 12/21 - 09/28 Fiordaliza Weeks SINGULAIR 10 MG ORAL TABLET active ONCE DAILY 12/21 Stephanie Porter LOSARTAN POTASSIUM 100 MG ORAL TABLET active Take one tablet daily 12/21 Madan Mack MD ASPIRIN ADULT LOW DOSE 81 MG ORAL TABLET DELAYED RELEASE active One Tab By Mouth Daily 01/26 Fiordaliza Weeks ZYRTEC ALLERGY TABLET completed once daily - 12/21 Stephanierogelio Porter TRAMADOL HCL 50 MG ORAL TABLET completed once daily - 12/21 Stephanie German MECLIZINE HCL 25 MG ORAL TABLET active three times daily Stephanie German SULFAMETHOXAZOLE-T RIMETHOPRIM TABLET completed twice daily - 05/12 Madan Mack MD BENICAR HCT 20-12.5 MG ORAL TABLET completed ONE TAB. DAILY as needed - 12/21 Stephanie German VICODIN TABS completed 5/325mg am and pm - 05/12 Madan Mack MD NEXIUM 40 MG ORAL CAPSULE DELAYED RELEASE active ONE TAB. DAILY Navarro Malhotra RN KLOR-CON M20 20 MEQ ORAL TABLET EXTENDED RELEASE completed po BID 10/21 - 09/28 Fiordaliza Weeks XARELTO 20 MG ORAL TABLET completed TAKE 1 TAB DAILY. - 05/12 Madan Mack MD VASOTEC TABLET completed - 09/28 Mckayla Mishra METOPROLOL TARTRATE 25 MG ORAL TABLET completed 1/2 TAB TWICE DAILY 12/21 - 12/24 Madan Mack MD LASIX 40 MG TABS (FUROSEMIDE) completed 1/2 tab twice daily 01/26 - 09/28 Fiordaliza Weeks LIPITOR 20 MG ORAL TABLET active ONE TAB. DAILY Nadia Lai BANKRUPT[employer] PARALEGAL DYSLIPIDEMIA KLOR-CON M10 10 MEQ ORAL TABLET EXTENDED RELEASE completed one tab po TAB DAILY 04/19 - 02/25 Fiordaliza Weeks HYDROCHLOROTHIAZID E 12.5 MG ORAL CAPSULE completed ONE TAB PO DAILY 04/19 - 02/25 Fiordaliza Weeks CRESTOR 10 MG ORAL TABLET completed ONE TAB. DAILY 04/03 - 09/28 Mianylmary Bran LIPITOR 20 MG ORAL TABLET completed ONE TAB. DAILY 04/03 - 04/03 Nadia Lai NP COMBIVENT AEROSOL completed as needed - 09/28 Gavin Sotomayor PERCOCET 5-325 MG ORAL TABLET completed po bid 10/18 - 09/28 Zylmary Sotomayor SKELAXIN 800 MG ORAL TABLET completed po tid 10/18 - 09/28 Mianylmary Sotomayor PRAVACHOL 40 MG ORAL TABLET completed ONE TAB. DAILY 04/27 - 04/03 Nadia Lai BANKRUPTCY PARALEGAL NITROLINGUAL 0.4 MG/SPRAY TRANSLINGUAL SOLUTION completed 1 spray PRN 4.9gm. bottle 04/11 - 02/25 Fiordaliza Weeks LEXAPRO 20 MG ORAL TABLET completed 2 tablet by mouth daily - 11/19 Madhu Root wellbutrin REQUIP 1 MG ORAL TABLET completed 1 tablet by mouth at bedtime as needed - 09/28 Melany Feliz WELLBUTRIN 100 MG ORAL TABLET completed ONE TAB. DAILY 02/08 - 02/16 Yolie Boyd RN LEVO-T 125 MCG ORAL TABLET active take once daily 01/26 Hanna Geoffrey COMBIVENT AEROSOL completed - 08/28 Radha Caren DULCOLAX STOOL SOFTENER CAPSULE completed one tab twice daily bid - 09/28 Luis Nunez OXYCODONE-ACETAMIN OPHEN TABS completed 5/325mg 1-2 tabs every 6 hrs as needed for pain - 08/28 Radha Caren METOPROLOL SUCCINATE ER 25 MG ORAL TABLET EXTENDED RELEASE 24 HOUR completed one tab. daily 02/08 - 08/17 Madan Mack MD KLOR-CON M10 10 MEQ ORAL TABLET EXTENDED RELEASE completed one TAB. DAILY - 09/28 Luis Nunez NIASPAN 500 MG ORAL TABLET EXTENDED RELEASE completed ONE TAB. AT BEDTIME - 08/28 Madan Mack MD LISINOPRIL-HYDROCH LOROTHIAZIDE 10-12.5 MG ORAL TABLET completed 1 tablet by mouth daily - 04/19 Madan Mack MD SIMVASTATIN 20 MG ORAL TABLET completed ONE TAB. DAILY - 08/28 Madan Mack MD HYDROCHLOROTHIAZID E 12.5 MG ORAL CAPSULE completed ONE TAB. DAILY - 01/08 Navarro Roscoe CHARLES LISINOPRIL 10 MG ORAL TABLET completed ONE TAB. DAILY - 01/08 Navarro Roscoe CHARLES SYNTHROID 150 MCG ORAL TABLET completed ONE TAB. DAILY - 01/08 Navarro Roscoe CHARLES PLAVIX 75 MG ORAL TABLET completed ONE TAB. DAILY - 01/08 Navarro Roscoe CHARLES ASPIRIN 325 MG ORAL TABLET completed ONE TAB. DAILY - 09/28 Mckayla Mishra OMEPRAZOLE CAPSULE DELAYED RELEASE completed 40 mg. daily 12/28 - 01/08 Clifton Hough MD SOCIAL HISTORY Date Observation Value Provider social history revie wed E&M reviewed - no changes required Madan Mack MD social history E&M Marital Statu s: Single L jarrett with family/friends E thnicity: Smoking History: P bakari is a former smoker. Madan Mack MD seatbelt usage 100 % [facility] exercise type bicycling [facility] physical exercise, frequency, days per week 6 /wk [facility] alcohol counseling no [facility] In the past 3 months , have you been waking up wanting to use drugs? (CAGE substance use question #4) N [facility] In the past 3 months , have you felt guilty or bad about using drugs? (CAGE substance use question #3) N [facility] In the past 3 months , has anyone annoyed you by telling you to cut down or stop using drugs? (CAGE substance use question #2) N [facility] In the past 3 months , have you felt you should cut down or stop using drugs?(CAGE substance use question #1) N [facility] alcohol use, average drinks per day 0 /[facility] caffeine use, averag e drinks per day yes [facility] drug use none [facility] passive cigarette sm irina exposure yes Madhu Goshen chewing tobacco use no Madhu Goshen cigar use no Madhu Goshen smoking, year quit 2011 Madhu acevedo number of years as a smoker 10 years or more Madhu Goshen smoking, date started 1976 inter mittant periods of cessation Madhu Goshen smoking history, tot al pack/year 2011 Madhu Goshen smoking history, tot al pack/day 10-12 cig day Madhu Goshen cigarette use yes Madhu Goshen smoking status Former smoker Madhu [facility] social history revie wed E&M reviewed - no changes required Madan Mack MD seatbelt usage 100 % [facility] exercise type bicycling [facility] physical exercise, frequency, days per week 6 /wk [facility] alcohol counseling no [facility] In the past 3 months , have you been waking up wanting to use drugs? (CAGE substance use question #4) N [facility] In the past 3 months , have you felt guilty or bad about using drugs? (CAGE substance use question #3) N [facility] In the past 3 months , has anyone annoyed you by telling you to cut down or stop using drugs? (CAGE substance use question #2) N [facility] In the past 3 months , have you felt you should cut down or stop using drugs?(CAGE substance use question #1) N [facility] alcohol use, average drinks per day 0 /d [facility] alcohol use yes [facility] caffeine use, averag e drinks per day yes [facility] drug use none [facility] passive cigarette sm irina exposure yes [facility] chewing tobacco use no [facility] cigar use no [facility] smoking, year quit 2011 Hannaestrella Cummings s number of years as a smoker 10 years or more Hanna Geoffrey smoking, date started 1976 inter mittant periods of cessation Hanna Geoffrey smoking history, tot al pack/year 2011 Hanna Geoffrey smoking history, tot al pack/day 10-12 cig day Hanna Geoffrey cigarette use yes Hanna Geoffrey smoking status Former smoker Hanna Geoffrey social history revie wed E&M reviewed - no changes required Madan Mack MD seatbelt usage 100 % Fiordaliza rivera exercise type bicycling Fiordaliza frias physical exercise, frequency, days per week 6 /wk Fiordaliza Weeks alcohol counseling no Fiordaliza patel In the past 3 months , have you been waking up wanting to use drugs? (CAGE substance use question #4) N Fiordaliza Weeks In the past 3 months , have you felt guilty or bad about using drugs? (CAGE substance use question #3) N Fiordaliza Weeks In the past 3 months , has anyone annoyed you by telling you to cut down or stop using drugs? (CAGE substance use question #2) N Fiordalzia Weeks In the past 3 months , have you felt you should cut down or stop using drugs?(CAGE substance use question #1) N Fiordaliza Weeks alcohol use, average drinks per day 0 /d Firodaliza Weeks alcohol use yes Fiordaliza camara caffeine use, averag e drinks per day yes Fiordaliza Weeks drug use none Fiordaliza camara passive cigarette sm irina exposure yes Fiordaliza Weeks chewing tobacco use no Fiordaliza aarnda cigar use no Fiordaliza Jenkins hoa smoking, year quit 2011 Fiordaliza macariobassam number of years as a smoker 10 years or more Fiordaliza Weeks smoking, date started 1976 inter mittant periods of cessation Fiordaliza Weeks smoking history, tot al pack/year 2011 Fiordaliza Navabassam smoking history, tot al pack/day 10-12 cig day Fiordaliza Weeks cigarette use yes Fiordaliza frias smoking status Former smoker Fiordaliza Francesradha crockett number of grandchildren Madan Mack MD T jeffry Mack MD social history E&M Marital Statu s: Single L jarrett with family/friends E thnicity: Smoking History: Meera villegas is a former smoker. Madan Mack MD social history revie wed E&M reviewed - no changes required Madan Mack MD seatbelt usage 100 % Fiordaliza Julianqueenie rivera exercise type bicycling Fiordaliza Gainesannamarie altagracia physical exercise, frequency, days per week 6 /wk Fiordaliza Desi alcohol counseling no Fiordaliza Jordanlucas patel In the past 3 months , have you been waking up wanting to use drugs? (CAGE substance use question #4) N Fiordaliza Weeks In the past 3 months , have you felt guilty or bad about using drugs? (CAGE substance use question #3) N Fiordaliza Weeks In the past 3 months , has anyone annoyed you by telling you to cut down or stop using drugs? (CAGE substance use question #2) N Fiordalizakristin Weeks In the past 3 months , have you felt you should cut down or stop using drugs?(CAGE substance use question #1) N Fiordalizakristin Weeks alcohol use, average drinks per day 0 /d Fiordaliza Weeks alcohol use yes Fiordaliza Jenkins marybassam caffeine use, averag e drinks per day yes Fiordaliza Weeks drug use none Fiordaliza camara passive cigarette sm irina exposure yes Fiordaliza Weeks chewing tobacco use no Fiordaliza aranda cigar use no Fiordaliza camara smoking, year quit 2011 Fiordaliza macariobassam number of years as a smoker 10 years or more Fiordaliza Weeks smoking, date started 1976 inter mittant periods of cessation Fiordaliza Weeks smoking history, tot al pack/year 2011 Fiordaliza Weeks smoking history, tot al pack/day 10-12 cig day Fiordaliza Weeks cigarette use yes Fiordaliza frias smoking status Former smoker Fiordaliza crockett social history revie princess E&M reviewed - no changes required Madan Mack MD seatbelt usage 100 % Stephanie kimbrough exercise type bicycling Stephanie Porter physical exercise, frequency, days per week 6 /wk Stephanie Porter alcohol counseling no Stephanie Bailey In the past 3 months , have you been waking up wanting to use drugs? (CAGE substance use question #4) N Stephanie Porter In the past 3 months , have you felt guilty or bad about using drugs? (CAGE substance use question #3) N Stephanie Porter In the past 3 months , has anyone annoyed you by telling you to cut down or stop using drugs? (CAGE substance use question #2) N Stephanie Porter In the past 3 months , have you felt you should cut down or stop using drugs?(CAGE substance use question #1) N Stephanie Porter alcohol use, average drinks per day 0 /d Stephanie Porter caffeine use, averag e drinks per day yes Stephanie Porter drug use none Stephanie Porter passive cigarette sm irina exposure yes Stephanie Porter smoking/tobacco cess ation, patient education and counseling yes Stephanie Porter chewing tobacco use no Stephanie Porter cigar use no Stephanie Porter smoking, year quit 2011 Stephanie King [facility] number of years as a smoker 10 years or more Stephanie Porter smoking, date started 1976 inter mittant periods of cessation Stephanie Porter smoking history, tot al pack/year 2011 Stephanie Porter smoking history, tot al pack/day 10-12 cig day Stephanie Porter cigarette use yes Stephanie Porter smoking status Former smoker Stephanie Arce nn smoking/tobacco cess ation, patient education and counseling yes Vivian Weiss BANKRUPTCY PARALEGAL smoking status Former smoker Vivian cartwright BANKRUPTCY PARALEGAL social history revie wed E&M reviewed - no changes required Madan Mack MD social history revie wed E&M reviewed Madan Mack MD smoking, year quit 2011 [facility], tot al pack/year 2011 Madan Mack MD social history revie wed E&M reviewed Navarro Malhotra RN smoking history, tot al pack/year 2013 Roel Patel MD smoking history, tot al pack/year 2013 Navarro Malhotra RN drug use none Madan Mack MD social history revie wed E&M reviewed Madan Mack MD smoking history, tot al pack/year 2012 Madan Mack MD social history revie wed E&M reviewed Navarro Malhotra RN smoking history, tot al pack/year 2012 Madan Mack MD physical exercise, frequency, days per week 6 /wk Cherylfiona Torrezmiedaia [facility] exercise type bicycling Cherylfiona Torrezmi glia [facility] social history revie wed E&M reviewed Cheryl Lorenicolewiley [facility] smoking history, tot al pack/year 2012 Cherylfiona Billingsleyedaia [facility] social history revie wed E&M reviewed Madan Mack MD smoking history, tot al pack/year 2012 Navarro Malhotra RN social history revie wed E&M reviewed Madan Mack MD passive cigarette sm irina exposure yes Fiordaliza Weeks smoking, year quit 2012 Fiordaliza patel smoking status former smoker Fiordaliza crockett smoking history, tot al pack/year 2012 Fiordaliza Weeks smoking history, tot al pack/year 2012 Navarro Malhotra RN exercise type walk Nadia Kimbrough P seatbelt usage 100 % Nadia Lai NP alcohol counseling no Nadia hilliard NP In the past 3 months , have you been waking up wanting to use drugs? (CAGE substance use question #4) N Nadia Lai NP In the past 3 months , have you felt guilty or bad about using drugs? (CAGE substance use question #3) Luis E Lai NP In the past 3 months , has anyone annoyed you by telling you to cut down or stop using drugs? (CAGE substance use question #2) Luis E Lai NP In the past 3 months , have you felt you should cut down or stop using drugs?(CAGE substance use question #1) N Nadia Lai NP alcohol use, average drinks per day 0 /d Nadia Lai NP drug use no Nadia Lai NP passive cigarette sm irina exposure no Nadia Lai NP smoking/tobacco cess ation, patient education and counseling yes Nadia Lai NP smoking history, tot al pack/year 2011 Nadia Lai BANKRUPTCY PARALEGAL smoking, date started 1977 inter mittant periods of cessation Nadia Ming BANKRUPTCY PARALEGAL smoking history, tot al pack/day 10-12 cig day Nadia Ming BANKRUPTCY PARALEGAL chewing tobacco use no Nadia celeste BANKRUPTCY PARALEGAL cigar use no Nadia Ming BANKRUPTCY PARALEGAL cigarette use yes Nadia Lai N P smoking status current every day smoker Elizabeth Lai BANKRUPTCY PARALEGAL quit smoking, stage quit Nadia Florin celeste BANKRUPTCY PARALEGAL smoking/tobacco cess ation, patient education and counseling yes Nadia Ming BANKRUPTCY PARALEGAL social history revie wed E&M reviewed Madan Mack MD social history revie wed E&M reviewed Madan Mack MD smoking/tobacco cess ation, patient education and counseling yes Carmeloalfredo Cortez BANKRUPTCY PARALEGAL smoking status current Toni Pj davis BANKRUPTCY PARALEGAL social history revie wed E&M reviewed Toni Cortez BANKRUPTCY PARALEGAL social history revie wed E&M reviewed Madan Mack MD social history revie wed E&M reviewed Navarro Malhotra RN drug use none Madan Mack MD social history revie wed E&M reviewed Madan Mack MD smoking/tobacco cess ation, patient education and counseling yes Madan Mack MD social history revie wed E&M reviewed Navarro Malhotra RN social history revie wed E&M reviewed Navarro Malhotra RN social history E&M Marital Statu s: Single L jarrett with family/friends E thnicity: Navarro Malhotra RN social history revie wed E&M reviewed Navarro Malhotra RN physical exercise, frequency, days per week yes [employer] caffeine use, averag e drinks per day yes [employer] alcohol use, average drinks per day none [employer] number of years as a smoker 10 years or more [employer] smoking status Quit [employer] FUNCTIONAL STATUS Date Observation Value Provider HRA, CV Assess/Plan, Angina (inactive) Management Plan continue current therapy Madan Mack MD HRA, CV Assess/Plan, Angina (inactive) Management Plan continue current therapy Madan Mack MD HRA, CV Assess/Plan, Angina (inactive) Management Plan continue current therapy Madan Mack MD MENTAL STATUS Date Observation Value Provider assessment of judgme nt and insight E&M Alert and oriented to time, place and person. Mood and affect are normal. Madan Mack MD assessment of judgme nt and insight E&M Alert and oriented to time, place and person. Mood and affect are normal. Navarro Malhotra RN assessment of judgme nt and insight E&M Alert and oriented to time, place and person. Mood and affect are normal. Madan Mack MD assessment of judgme nt and insight E&M Alert and oriented to time, place and person. Mood and affect are normal. Navarro Malhotra RN assessment of judgme nt and insight E&M Alert and oriented to time, place and person. Mood and affect are normal. Madan Mack MD assessment of judgme nt and insight E&M Alert and oriented to time, place and person. Mood and affect are normal. Madan Mack MD assessment of judgme nt and insight E&M Alert and oriented to time, place and person. Mood and affect are normal. Madan Mack MD assessment of judgme nt and insight E&M Alert and oriented to time, place and person. Mood and affect are normal. Madan Mack MD assessment of judgme nt and insight E&M Alert and oriented to time, place and person. Mood and affect are normal. Madan Mack MD assessment of judgme nt and insight E&M Alert and oriented to time, place and person. Mood and affect are normal. Navarro Malhotra RN assessment of judgme nt and insight E&M Alert and oriented to time, place and person. Mood and affect are normal. Madan Mack MD assessment of judgme nt and insight E&M Alert and oriented to time, place and person. Mood and affect are normal. Navarro Malhotra RN assessment of judgme nt and insight E&M Alert and oriented to time, place and person. Mood and affect are normal. Navarro Malhotra RN assessment of judgme nt and insight E&M Alert and oriented to time, place and person. Mood and affect are normal. Navarro Malhotra FACILITY COORDINATOR HISTORY Family Member Condition Mother Family History Unkno wn Daughter Family History Unkno wn INSURANCE PROVIDERS Payer name Policy type / Coverage type [place] [employer] [facility] [email or web address] [id number] ADVANCE DIRECTIVES Name Date DISCUSSED - NO DECISION MADE TREATMENT PLAN Date Name Performer Cardiology Madan Mack MD Cardiology Madan Mack MD Cardiology Madan Mack MD Cardiology Madan Mack MD Cardiology Madan Mack MD Cardiology Madan Mack MD Cardiology Madan Mack MD Cardiology Madan Mack MD Cardiology Madan Mack MD Cardiology Madan Mack MD Cardiology follow up Madan rios MD Cardiology follow up Madan rios MD Cardiology follow up Madan rios MD Cardiology follow up :Had hip surgery for her 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 C/o weight gain since surgery. 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 C/o difficulty with sleeping at night. Madan Mack MD Cardiology follow up :BP today: 112/80 P rior BP: 134/86 (01/21/2018) Madan Mack MD Cardiology follow up :She had her Levo-T increased to 125 mg, which has caused her to feel discomfort. Will recheck TSH with reflex to FT4. Madan Mack MD Cardiology Follow up Madan rios MD Cardiology Follow up Madan rios MD Cardiology Follow up Madan rios MD Cardiology Follow up Madan rios MD Cardiology Follow up Madan rios MD Cardiology Follow up Madan rios MD Cardiology Hospital Follow up To krista Mack MD Cardiology Hospital Follow up To krista Mack MD Cardiology Hospital Follow up :Holly had an episode of VF during cardaic cath. She is wearing a heart tele monitor to see if she's had any further ventricualr arrhythmias Madan Mack MD Cardiology Hospital Follow up :I ncreasing Losartan. Madan Mack MD Cardiology Hospital Follow up :Metoprolol discontinued. Madan Mack MD FOLLOW UP Madan Mack MD FOLLOW UP: H er updated medication list for this problem includes: Aspirin 81 Mg Tabs (Aspirin) ..... One tab. three times a week Metoprolol Tartrate 25 Mg Tabs (Metoprolol tartrate) ..... 1/2 tab twice daily Lipitor 20 Mg Tabs (Atorvastatin calcium) ..... One tab. daily Madan Mack MD FOLLOW UP: T he following medications were removed from the medication list: Benicar Hct 20-12.5 Mg Tabs (Olmesartan medoxomil-hctz) ..... One tab. daily as needed Her updated medication list for this problem includes: Aspirin 81 Mg Tabs (Aspirin) ..... One tab. three times a week Losartan Potassium 25 Mg Oral Tabs (Losartan potassium) ..... Once daily Metoprolol Tartrate 25 Mg Tabs (Metoprolol tartrate) ..... 1/2 tab twice daily Klor-con M20 20 Meq Tbcr (Potassium chloride debora cr) ..... Po bid Madan Mack MD FOLLOW UP: T he following medications were removed from the medication list: Benicar Hct 20-12.5 Mg Tabs (Olmesartan medoxomil-hctz) ..... One tab. daily as needed Her updated medication list for this problem includes: Losartan Potassium 25 Mg Oral Tabs (Losartan potassium) ..... Once daily Metoprolol Tartrate 25 Mg Tabs (Metoprolol tartrate) ..... 1/2 tab twice daily Madan Mack MD Cholesterol manageme nt:Patient presents for lipid clinic. Values are at goal. No changes are made to regimen. Return to lipid clinic in 6 months. Her updated medication list for this problem includes: Lipitor 20 Mg Tabs (Atorvastatin calcium) ..... One tab. daily Viivan Weiss NP follow up,isa zuñiga s: H er updated medication list for this problem includes: Aspirin 81 Mg Tabs (Aspirin) ..... One tab. three times a week Madan Mack MD Follow Up: H er updated medication list for this problem includes: Metoprolol Tartrate 25 Mg Tabs (Metoprolol tartrate) ..... 1/2 tab at bedtime Benicar Hct 20-12.5 Mg Tabs (Olmesartan medoxomil-hctz) ..... One tab. daily Madan Mack MD Follow Up: H er updated medication list for this problem includes: Aspirin 81 Mg Tabs (Aspirin) ..... One tab. three times a week Madan Mack MD Follow Up: H er updated medication list for this problem includes: Metoprolol Tartrate 25 Mg Tabs (Metoprolol tartrate) ..... 1/2 tab at bedtime Aspirin 81 Mg Tabs (Aspirin) ..... One tab. three times a week BP today: 95/66 Prior BP: 129/89 (11/04/2013) H CT: 41.3 (11/14/2011) Platelets: 280 THOUSAND/UL (11/14/2011) R BC: 4.39 MILLION/UL (11/14/2011) BUN: 17 (11/14/2011) Creat: 0.76 (11/14/2011) Glucose: 100 (11/14/2011) N a+: 141 (11/14/2011) K+: 4.4 (11/14/2011) Cl: 105 (11/14/2011) Calcium: 9.8 (11/14/2011) TSH: <0.01 mIU/L (11/14/2011) T4 (total): 10.5 (11/14/2011) N uclear Stress Findings: 1. Normal myocardial perfusion imaging after vasodilator stress with Regadenoson. 2 . Normal left ventricular systolic function with a calculated ejection fraction of 51%. 3 . No obvious significant scintigraphic evidence of myocardial ischemia or scar. (11/02/2011) C ardiac Cath: In this setting, it would be deemed that the anterior wall distribution o f the left anterior descending artery would be technically ischemic based on these numbers and in the setting of her valvular regurgitation, anterior wall ischemia, the patient may be a better choice candidate to proceed with redo bypass surgery with valve repair. - (07/21/2013) C ardiac Cath Comments: PTCA of vein graft to the RCA with a 5 mm x 12 mm TREK balloon. P TCA with a 3 x 20 mm muscogee RCA PDA vessel with a Sprinter balloon. - [facility] (07/06/2013) Madan Mack MD Follow Up: H er updated medication list for this problem includes: Aspirin 81 Mg Tabs (Aspirin) ..... One tab. three times a week Carotid Duplex Scan: N ormal carotid duplex examination. Vertebral flow is antegrade bilaterally. - [facility] (11/04/2013) Madan Mack MD : H er updated medication list for this problem includes: Metoprolol Tartrate 25 Mg Tabs (Metoprolol tartrate) ..... 1/2 tab at bedtime Orders: E KG ([id number]) Roel Patel MD : H er updated medication list for this problem includes: Metoprolol Tartrate 25 Mg Tabs (Metoprolol tartrate) ..... 1/2 tab at bedtime BP today: 129/89 Prior BP: 114/80 (10/21/2013) Nuclear Stress Findings: 1. Normal myocardial perfusion imaging after vasodilator stress with Regadenoson. 2 . Normal left ventricular systolic function with a calculated ejection fraction of 51%. 3 . No obvious significant scintigraphic evidence of myocardial ischemia or scar. (11/02/2011) C ardiac Cath: In this setting, it would be deemed that the anterior wall distribution o f the left anterior descending artery would be technically ischemic based on these numbers and in the setting of her valvular regurgitation, anterior wall ischemia, the patient may be a better choice candidate to proceed with redo bypass surgery with valve repair. - (07/21/2013) C ardiac Cath Comments: PTCA of vein graft to the RCA with a 5 mm x 12 mm TREK balloon. P TCA with a 3 x 20 mm muscogee RCA PDA vessel with a Sprinter balloon. - [facility] (07/06/2013) C arotid Doppler/Duplex: Normal GC (12/09/2009) C HOL: 157 (06/25/2013) LDL: 83 (06/25/2013) HDL: 52 (06/25/2013) T (06/25/2013) H CT: 41.3 (11/14/2011) Platelets: 280 THOUSAND/UL (11/14/2011) R BC: 4.39 MILLION/UL (11/14/2011) BUN: 17 (11/14/2011) Creat: 0.76 (11/14/2011) Glucose: 100 (11/14/2011) N a+: 141 (11/14/2011) K+: 4.4 (11/14/2011) Cl: 105 (11/14/2011) TSH: <0.01 mIU/L (11/14/2011) T4 (total): 10.5 (11/14/2011) Roel Patel MD : H er updated medication list for this problem includes: Lasix 20 Mg Tabs (Furosemide) ..... Alt. 2 tabs with one tab Metoprolol Tartrate 25 Mg Tabs (Metoprolol tartrate) ..... 1/2 tab at bedtime BP today: 129/89 P rior BP: 114/80 (10/21/2013) Prior 10 Yr Risk Heart Disease: N/A (08/02/2011) Labs Reviewed: C reat: 0.76 (11/14/2011) C hol: 157 (06/25/2013) HDL: 52 (06/25/2013) LDL: 83 (06/25/2013) T (06/25/2013) Roel Patel MD : H er updated medication list for this problem includes: Levothyroxine Sodium 112 Mcg Tabs (Levothyroxine sodium) ..... Daily Labs Reviewed: T SH: <0.01 mIU/L (11/14/2011) Total T4: 10.5 (11/14/2011) C hol: 157 (06/25/2013) HDL: 52 (06/25/2013) LDL: 83 (06/25/2013) T (06/25/2013) Roel Patel MD : H er updated medication list for this problem includes: Lipitor 20 Mg Tabs (Atorvastatin calcium) ..... One tab. daily Metoprolol Tartrate 25 Mg Tabs (Metoprolol tartrate) ..... 1/2 tab at bedtime Roel Patel MD : H er updated medication list for this problem includes: Lipitor 20 Mg Tabs (Atorvastatin calcium) ..... One tab. daily BP today: 129/89 Prior BP: 114/80 (10/21/2013) C HOL: 157 (06/25/2013) LDL: 83 (06/25/2013) HDL: 52 (06/25/2013) T (06/25/2013) C HOL (goal): 200 (06/25/2013) LDL (goal): 100 (06/25/2013) HDL (goal): 40 (06/25/2013) TG (goal): 150 (06/25/2013) Roel Patel MD FOLLOW UP: T he following medications were removed from the medication list: Aspirin 325 Mg Tabs (Aspirin) ..... One tab. daily Vasotec Tabs (Enalapril maleate tabs) Her updated medication list for this problem includes: Lipitor 20 Mg Tabs (Atorvastatin calcium) ..... One tab. daily Metoprolol Tartrate 25 Mg Tabs (Metoprolol tartrate) ..... 1/2 tab at bedtime & #13;BP today: 114/80 Prior BP: 124/93 (09/02/2013) N uclear Stress Findings: 1. Normal myocardial perfusion imaging after vasodilator stress with Regadenoson. 2 . Normal left ventricular systolic function with a calculated ejection fraction of 51%. 3 . No obvious significant scintigraphic evidence of myocardial ischemia or scar. (11/02/2011) C ardiac Cath: In this setting, it would be deemed that the anterior wall distribution o f the left anterior descending artery would be technically ischemic based on these numbers and in the setting of her valvular regurgitation, anterior wall ischemia, the patient may be a better choice candidate to proceed with redo bypass surgery with valve repair. - (07/21/2013) C ardiac Cath Comments: PTCA of vein graft to the RCA with a 5 mm x 12 mm TREK balloon. P TCA with a 3 x 20 mm muscogee RCA PDA vessel with a Sprinter balloon. - [facility] (07/06/2013) C arotid Doppler/Duplex: Normal (12/09/2009) C HOL: 157 (06/25/2013) LDL: 83 (06/25/2013) HDL: 52 (06/25/2013) T (06/25/2013) H CT: 41.3 (11/14/2011) Platelets: 280 THOUSAND/UL (11/14/2011) R BC: 4.39 MILLION/UL (11/14/2011) BUN: 17 (11/14/2011) Creat: 0.76 (11/14/2011) Glucose: 100 (11/14/2011) N a+: 141 (11/14/2011) K+: 4.4 (11/14/2011) Cl: 105 (11/14/2011) TSH: <0.01 mIU/L (11/14/2011) T4 (total): 10.5 (11/14/2011) Madan Mack MD FOLLOW UP Madan Mack MD FOLLOW UP: T he following medications were removed from the medication list: Aspirin 325 Mg Tabs (Aspirin) ..... One tab. daily Vasotec Tabs (Enalapril maleate tabs) Her updated medication list for this problem includes: Lasix 20 Mg Tabs (Furosemide) ..... Alt. 2 tabs with one tab Metoprolol Tartrate 25 Mg Tabs (Metoprolol tartrate) ..... 1/2 tab at bedtime Klor-con M20 20 Meq Tbcr (Potassium chloride debora cr) ..... Po bid Madan Mack MD FOLLOW UP: T he following medications were removed from the medication list: Aspirin 325 Mg Tabs (Aspirin) ..... One tab. daily Vasotec Tabs (Enalapril maleate tabs) Her updated medication list for this problem includes: Metoprolol Tartrate 25 Mg Tabs (Metoprolol tartrate) ..... 1/2 tab at bedtime BP today: 114/80 Prior BP: 124/93 (09/02/2013) N uclear Stress Findings: 1. Normal myocardial perfusion imaging after vasodilator stress with Regadenoson. 2 . Normal left ventricular systolic function with a calculated ejection fraction of 51%. 3 . No obvious significant scintigraphic evidence of myocardial ischemia or scar. (11/02/2011) C ardiac Cath: In this setting, it would be deemed that the anterior wall distribution o f the left anterior descending artery would be technically ischemic based on these numbers and in the setting of her valvular regurgitation, anterior wall ischemia, the patient may be a better choice candidate to proceed with redo bypass surgery with valve repair. - (07/21/2013) C ardiac Cath Comments: PTCA of vein graft to the RCA with a 5 mm x 12 mm TREK balloon. P TCA with a 3 x 20 mm muscogee RCA PDA vessel with a Sprinter balloon. - [facility] (07/06/2013) C arotid Doppler/Duplex: Normal (12/09/2009) C HOL: 157 (06/25/2013) LDL: 83 (06/25/2013) HDL: 52 (06/25/2013) T (06/25/2013) H CT: 41.3 (11/14/2011) Platelets: 280 THOUSAND/UL (11/14/2011) R BC: 4.39 MILLION/UL (11/14/2011) BUN: 17 (11/14/2011) Creat: 0.76 (11/14/2011) Glucose: 100 (11/14/2011) N a+: 141 (11/14/2011) K+: 4.4 (11/14/2011) Cl: 105 (11/14/2011) TSH: <0.01 mIU/L (11/14/2011) T4 (total): 10.5 (11/14/2011) Madan Mack MD FOLLOW UP: T he following medications were removed from the medication list: Aspirin 325 Mg Tabs (Aspirin) ..... One tab. daily Madan Mack MD FOLLOW UP: T he following medications were removed from the medication list: Aspirin 325 Mg Tabs (Aspirin) ..... One tab. daily Vasotec Tabs (Enalapril maleate tabs) Her updated medication list for this problem includes: Lasix 20 Mg Tabs (Furosemide) ..... Alt. 2 tabs with one tab Metoprolol Tartrate 25 Mg Tabs (Metoprolol tartrate) ..... 1/2 tab at bedtime Madan Mack MD discuss upcoming mara eliana: H er updated medication list for this problem includes: Levothyroxine Sodium 112 Mcg Tabs (Levothyroxine sodium) ..... Daily Madan Mack MD discuss upcoming mara eliana: H er updated medication list for this problem includes: Aspirin 325 Mg Tabs (Aspirin) ..... One tab. daily Lipitor 20 Mg Tabs (Atorvastatin calcium) ..... One tab. daily Metoprolol Tartrate 25 Mg Tabs (Metoprolol tartrate) ..... 1/2 tab. twice daily Vasotec Tabs (Enalapril maleate tabs) Madan Mack MD discuss upcoming surgery Madan Mack MD discuss upcoming mara eliana: H er updated medication list for this problem includes: Lipitor 20 Mg Tabs (Atorvastatin calcium) ..... One tab. daily Madan Mack MD discuss upcoming mara eliana: H er updated medication list for this problem includes: Aspirin 325 Mg Tabs (Aspirin) ..... One tab. daily Lipitor 20 Mg Tabs (Atorvastatin calcium) ..... One tab. daily Metoprolol Tartrate 25 Mg Tabs (Metoprolol tartrate) ..... 1/2 tab. twice daily Vasotec Tabs (Enalapril maleate tabs) Madan Mack MD discuss upcoming mara eliana: H er updated medication list for this problem includes: Aspirin 325 Mg Tabs (Aspirin) ..... One tab. daily Lasix 20 Mg Tabs (Furosemide) ..... Alt. 2 tabs with one tab Metoprolol Tartrate 25 Mg Tabs (Metoprolol tartrate) ..... 1/2 tab. twice daily Vasotec Tabs (Enalapril maleate tabs) BP today: 124/93 Prior BP: 138/95 (06/17/2013) N uclear Stress Findings: 1. Normal myocardial perfusion imaging after vasodilator stress with Regadenoson. 2 . Normal left ventricular systolic function with a calculated ejection fraction of 51%. 3 . No obvious significant scintigraphic evidence of myocardial ischemia or scar. (11/02/2011) C ardiac Cath: Partial revascularization of SVG to the RCA with heavy thrombus burden relieved from GRAYSON 0 flow to GRAYSON 1 flow with jehovah's witness of a trace of blood flow into the PDA. Intra-arterial Integrilin administration given. Atretic LOPEZ to graft. Occluded vein graft to the OM and diagonal. The patient needed defibrillation three times during the procedure as her rhythm had degenerated to v-fib, most likely related to wire manipulation. - [facility] (07/06/2013) C ardiac Cath Comments: PTCA of vein graft to the RCA with a 5 mm x 12 mm TREK balloon. P TCA with a 3 x 20 mm muscogee RCA PDA vessel with a Sprinter balloon. - [facility] (07/06/2013) H CT: 41.3 (11/14/2011) Platelets: 280 THOUSAND/UL (11/14/2011) R BC: 4.39 MILLION/UL (11/14/2011) BUN: 17 (11/14/2011) Creat: 0.76 (11/14/2011) Glucose: 100 (11/14/2011) N a+: 141 (11/14/2011) K+: 4.4 (11/14/2011) Cl: 105 (11/14/2011) SGOT (AST): 23 (04/03/2012) SGPT (ALT): 26 (04/03/2012) TSH: <0.01 mIU/L (11/14/2011) T4 (total): 10.5 (11/14/2011) Madan Mack MD discuss upcoming mara eliana: H er updated medication list for this problem includes: Aspirin 325 Mg Tabs (Aspirin) ..... One tab. daily Lasix 20 Mg Tabs (Furosemide) ..... Alt. 2 tabs with one tab Metoprolol Tartrate 25 Mg Tabs (Metoprolol tartrate) ..... 1/2 tab. twice daily Vasotec Tabs (Enalapril maleate tabs) Madan Mack MD : T he following medications were removed from the medication list: Metoprolol Succinate 25 Mg Tb24 (Metoprolol succinate) ..... One tab. daily Her updated medication list for this problem includes: Aspirin 81 Mg Tabs (Aspirin) ..... One tab. daily Lipitor 20 Mg Tabs (Atorvastatin calcium) ..... One tab. daily Metoprolol Succinate 50 Mg Tb24 (Metoprolol succinate) ..... One tab. daily BP today: 138/95 Prior BP: 149/98 (02/25/2013) N uclear Stress Findings: 1. Normal myocardial perfusion imaging after vasodilator stress with Regadenoson. 2 . Normal left ventricular systolic function with a calculated ejection fraction of 51%. 3 . No obvious significant scintigraphic evidence of myocardial ischemia or scar. (11/02/2011) C ardiac Cath: EF - 35-40%. % Left Main stenosis: 70% stenosis. % LAD stenosis: 80%. % RCA stenosis: 99%. M oderate LV dysfunction. N ormal renal arteries. [facility] (12/17/2008) Carotid Doppler/Duplex: Normal (12/09/2009) C HOL: 121 (05/22/2012) LDL: 46 (05/22/2012) HDL: 46 (05/22/2012) T (05/22/2012) H CT: 41.3 (11/14/2011) Platelets: 280 THOUSAND/UL (11/14/2011) R BC: 4.39 MILLION/UL (11/14/2011) BUN: 17 (11/14/2011) Creat: 0.76 (11/14/2011) Glucose: 100 (11/14/2011) N a+: 141 (11/14/2011) K+: 4.4 (11/14/2011) Cl: 105 (11/14/2011) TSH: <0.01 mIU/L (11/14/2011) T4 (total): 10.5 (11/14/2011) Madan Mack MD : T he following medications were removed from the medication list: Metoprolol Succinate 25 Mg Tb24 (Metoprolol succinate) ..... One tab. daily Her updated medication list for this problem includes: Aspirin 81 Mg Tabs (Aspirin) ..... One tab. daily Lasix 20 Mg Tabs (Furosemide) ..... Po daily Metoprolol Succinate 50 Mg Tb24 (Metoprolol succinate) ..... One tab. daily BP today: 138/95 Prior BP: 149/98 (02/25/2013) N uclear Stress Findings: 1. Normal myocardial perfusion imaging after vasodilator stress with Regadenoson. 2 . Normal left ventricular systolic function with a calculated ejection fraction of 51%. 3 . No obvious significant scintigraphic evidence of myocardial ischemia or scar. (11/02/2011) C ardiac Cath: EF - 35-40%. % Left Main stenosis: 70% stenosis. % LAD stenosis: 80%. % RCA stenosis: 99%. M oderate LV dysfunction. N ormal renal arteries. [facility] (12/17/2008) H CT: 41.3 (11/14/2011) Platelets: 280 THOUSAND/UL (11/14/2011) R BC: 4.39 MILLION/UL (11/14/2011) BUN: 17 (11/14/2011) Creat: 0.76 (11/14/2011) Glucose: 100 (11/14/2011) N a+: 141 (11/14/2011) K+: 4.4 (11/14/2011) Cl: 105 (11/14/2011) SGOT (AST): 23 (04/03/2012) SGPT (ALT): 26 (04/03/2012) TSH: <0.01 mIU/L (11/14/2011) T4 (total): 10.5 (11/14/2011) Madan Mack MD Madan Mack MD : H er updated medication list for this problem includes: Levothroid 125 Mcg Tabs (Levothyroxine sodium) ..... Take one pill a day Labs Reviewed: T SH: <0.01 mIU/L (11/14/2011) Total T4: 10.5 (11/14/2011) C hol: 121 (05/22/2012) HDL: 46 (05/22/2012) LDL: 46 (05/22/2012) T (05/22/2012) Madan Mack MD : H er updated medication list for this problem includes: Aspirin 81 Mg Tabs (Aspirin) ..... One tab. daily Metoprolol Succinate 25 Mg Tb24 (Metoprolol succinate) ..... One tab. daily Lipitor 20 Mg Tabs (Atorvastatin calcium) ..... One tab. daily Metoprolol Succinate 50 Mg Tb24 (Metoprolol succinate) ..... One tab. daily BP today: 138/95 Prior BP: 149/98 (02/25/2013) N uclear Stress Findings: 1. Normal myocardial perfusion imaging after vasodilator stress with Regadenoson. 2 . Normal left ventricular systolic function with a calculated ejection fraction of 51%. 3 . No obvious significant scintigraphic evidence of myocardial ischemia or scar. (11/02/2011) C ardiac Cath: EF - 35-40%. % Left Main stenosis: 70% stenosis. % LAD stenosis: 80%. % RCA stenosis: 99%. M oderate LV dysfunction. N ormal renal arteries. [facility] (12/17/2008) C arotid Doppler/Duplex: Normal (12/09/2009) C HOL: 121 (05/22/2012) LDL: 46 (05/22/2012) HDL: 46 (05/22/2012) T (05/22/2012) H CT: 41.3 (11/14/2011) Platelets: 280 THOUSAND/UL (11/14/2011) R BC: 4.39 MILLION/UL (11/14/2011) BUN: 17 (11/14/2011) Creat: 0.76 (11/14/2011) Glucose: 100 (11/14/2011) N a+: 141 (11/14/2011) K+: 4.4 (11/14/2011) Cl: 105 (11/14/2011) TSH: <0.01 mIU/L (11/14/2011) T4 (total): 10.5 (11/14/2011) Madan Mack MD : H er updated medication list for this problem includes: Aspirin 81 Mg Tabs (Aspirin) ..... One tab. daily Metoprolol Succinate 25 Mg Tb24 (Metoprolol succinate) ..... One tab. daily Lasix 20 Mg Tabs (Furosemide) ..... Po daily Metoprolol Succinate 50 Mg Tb24 (Metoprolol succinate) ..... One tab. daily BP today: 138/95 Prior BP: 149/98 (02/25/2013) N uclear Stress Findings: 1. Normal myocardial perfusion imaging after vasodilator stress with Regadenoson. 2 . Normal left ventricular systolic function with a calculated ejection fraction of 51%. 3 . No obvious significant scintigraphic evidence of myocardial ischemia or scar. (11/02/2011) C ardiac Cath: EF - 35-40%. % Left Main stenosis: 70% stenosis. % LAD stenosis: 80%. % RCA stenosis: 99%. M oderate LV dysfunction. N ormal renal arteries. [facility] (12/17/2008) H CT: 41.3 (11/14/2011) Platelets: 280 THOUSAND/UL (11/14/2011) R BC: 4.39 MILLION/UL (11/14/2011) BUN: 17 (11/14/2011) Creat: 0.76 (11/14/2011) Glucose: 100 (11/14/2011) N a+: 141 (11/14/2011) K+: 4.4 (11/14/2011) Cl: 105 (11/14/2011) SGOT (AST): 23 (04/03/2012) SGPT (ALT): 26 (04/03/2012) TSH: <0.01 mIU/L (11/14/2011) T4 (total): 10.5 (11/14/2011) Madan Mack MD Follow up: T he following medications were removed from the medication list: Hydrochlorothiazide 12.5 Mg Caps (Hydrochlorothiazide) ..... One tab po daily Klor-con M10 10 Meq Tbcr (Potassium chloride debora cr) ..... One tab po tab daily Her updated medication list for this problem includes: Aspirin 81 Mg Tabs (Aspirin) ..... One tab. daily Metoprolol Succinate 25 Mg Tb24 (Metoprolol succinate) ..... One tab. daily BP today: 149/98 Prior BP: 110/82 (04/19/2012) N uclear Stress Findings: 1. Normal myocardial perfusion imaging after vasodilator stress with Regadenoson. 2 . Normal left ventricular systolic function with a calculated ejection fraction of 51%. 3 . No obvious significant scintigraphic evidence of myocardial ischemia or scar. & #13;GC (11/02/2011) C ardiac Cath: EF - 35-40%. % Left Main stenosis: 70% stenosis. % LAD stenosis: 80%. % RCA stenosis: 99%. M oderate LV dysfunction. N ormal renal arteries. [facility] (12/17/2008) H CT: 41.3 (11/14/2011) Platelets: 280 THOUSAND/UL (11/14/2011) R BC: 4.39 MILLION/UL (11/14/2011) BUN: 17 (11/14/2011) Creat: 0.76 (11/14/2011) Glucose: 100 (11/14/2011) N a+: 141 (11/14/2011) K+: 4.4 (11/14/2011) Cl: 105 (11/14/2011) SGOT (AST): 23 (04/03/2012) SGPT (ALT): 26 (04/03/2012) TSH: <0.01 mIU/L (11/14/2011) T4 (total): 10.5 (11/14/2011) Madan Mack MD Follow up: T he following medications were removed from the medication list: Nitrolingual 0.4 Mg/spray Soln (Nitroglycerin) ..... 1 spray prn 4.9gm. bottle Her updated medication list for this problem includes: Aspirin 81 Mg Tabs (Aspirin) ..... One tab. daily Metoprolol Succinate 25 Mg Tb24 (Metoprolol succinate) ..... One tab. daily Madan Mack MD Follow up Madan Mack MD Follow up: T he following medications were removed from the medication list: Nitrolingual 0.4 Mg/spray Soln (Nitroglycerin) ..... 1 spray prn 4.9gm. bottle Her updated medication list for this problem includes: Aspirin 81 Mg Tabs (Aspirin) ..... One tab. daily Metoprolol Succinate 25 Mg Tb24 (Metoprolol succinate) ..... One tab. daily Lipitor 20 Mg Tabs (Atorvastatin calcium) ..... One tab. daily BP today: 149/98 Prior BP: 110/82 (04/19/2012) N uclear Stress Findings: 1. Normal myocardial perfusion imaging after vasodilator stress with Regadenoson. 2. Normal left ventricular systolic function with a calculated ejection fraction of 51%. 3 . No obvious significant scintigraphic evidence of myocardial ischemia or scar. (11/02/2011) C ardiac Cath: EF - 35-40%. % Left Main stenosis: 70% stenosis. % LAD stenosis: 80%. % RCA stenosis: 99%. M oderate LV dysfunction. N ormal renal arteries. [facility] (12/17/2008) C arotid Doppler/Duplex: Normal (12/09/2009) C HOL: 121 (05/22/2012) LDL: 46 (05/22/2012) HDL: 46 (05/22/2012) T (05/22/2012) H CT: 41.3 (11/14/2011) Platelets: 280 THOUSAND/UL (11/14/2011) R BC: 4.39 MILLION/UL (11/14/2011) BUN: 17 (11/14/2011) Creat: 0.76 (11/14/2011) Glucose: 100 (11/14/2011) N a+: 141 (11/14/2011) K+: 4.4 (11/14/2011) Cl: 105 (11/14/2011) TSH: <0.01 mIU/L (11/14/2011) T4 (total): 10.5 (11/14/2011) Madan Mack MD Follow up: H er updated medication list for this problem includes: Lipitor 20 Mg Tabs (Atorvastatin calcium) ..... One tab. daily BP today: 149/98 Prior BP: 110/82 (04/19/2012) C HOL: 121 (05/22/2012) LDL: 46 (05/22/2012) HDL: 46 (05/22/2012) T (05/22/2012) C HOL (goal): 200 (08/02/2011) LDL (goal): 70 (04/03/2012) HDL (goal): 40 (08/02/2011) TG (goal): 150 (08/02/2011) Madan Mack MD follow up: H er updated medication list for this problem includes: Aspirin 81 Mg Tabs (Aspirin) ..... One tab. daily Lisinopril-hydrochlorothiazide 10-12.5 Mg Tabs (Lisinopril-hydrochlorothiazide) ..... 1 tablet by mouth daily Metoprolol Succinate 25 Mg Tb24 (Metoprolol succinate) ..... One tab. daily BP today: 102/80 P rior BP: 136/94 (10/19/2011) Prior 10 Yr Risk Heart Disease: N/A (08/02/2011) Labs Reviewed: C reat: 0.76 (11/14/2011) C hol: 179 (11/14/2011) HDL: 55 (11/14/2011) LDL: 93 MG/DL (CALC) (11/14/2011) T (11/14/2011) Madan Mack MD follow up: H er updated medication list for this problem includes: Aspirin 81 Mg Tabs (Aspirin) ..... One tab. daily Lisinopril-hydrochlorothiazide 10-12.5 Mg Tabs (Lisinopril-hydrochlorothiazide) ..... 1 tablet by mouth daily Metoprolol Succinate 25 Mg Tb24 (Metoprolol succinate) ..... One tab. daily Nitrolingual 0.4 Mg/spray Soln (Nitroglycerin) ..... 1 spray prn 4.9gm. bottle Pravachol 40 Mg Tabs (Pravastatin sodium) ..... One tab. daily BP today: 102/80 Prior BP: 136/94 (10/19/2011) N uclear Stress Findings: 1. Normal myocardial perfusion imaging after vasodilator stress with Regadenoson. 2 . Normal left ventricular systolic function with a calculated ejection fraction of 51%. 3 . No obvious significant scintigraphic evidence of myocardial ischemia or scar. (11/02/2011) C ardiac Cath: EF - 35-40%. % Left Main stenosis: 70% stenosis. % LAD stenosis: 80%. % RCA stenosis: 99%. M oderate LV dysfunction. N ormal renal arteries. [facility] (12/17/2008) C arotid Doppler/Duplex: Normal (12/09/2009) C HOL: 179 (11/14/2011) LDL: 93 MG/DL (CALC) (11/14/2011) HDL: 55 (11/14/2011) T (11/14/2011) H CT: 41.3 (11/14/2011) Platelets: 280 THOUSAND/UL (11/14/2011) R BC: 4.39 MILLION/UL (11/14/2011) BUN: 17 (11/14/2011) Creat: 0.76 (11/14/2011) Glucose: 100 (11/14/2011) N a+: 141 (11/14/2011) K+: 4.4 (11/14/2011) Cl: 105 (11/14/2011) TSH: <0.01 mIU/L (11/14/2011) T4 (total): 10.5 (11/14/2011) Madan Mack MD follow up: H er updated medication list for this problem includes: Pravachol 40 Mg Tabs (Pravastatin sodium) ..... One tab. daily BP today: 102/80 Prior BP: 136/94 (10/19/2011) C HOL: 179 (11/14/2011) LDL: 93 MG/DL (CALC) (11/14/2011) HDL: 55 (11/14/2011) T (11/14/2011) C HOL (goal): 200 (08/02/2011) LDL (goal): 100 (08/02/2011) HDL (goal): 40 (08/02/2011) TG (goal): 150 (08/02/2011) Madan Mack MD follow up : H er updated medication list for this problem includes: Levothroid 150 Mcg Tabs (Levothyroxine sodium) ..... One tab. daily Orders: C BC (INCLUDES DIFF/PLT) (5991) C OMPREHENSIVE METABOLIC PANEL W/EGFR (42724) T HYROID PANEL WITH TSH, 3RD GENERATION (7444) L IPID PANEL (4920) Madan Mack MD follow up : H er updated medication list for this problem includes: Levothroid 150 Mcg Tabs (Levothyroxine sodium) ..... One tab. daily Madan Mack MD follow up : H er updated medication list for this problem includes: Aspirin 81 Mg Tabs (Aspirin) ..... One tab. daily Lisinopril-hydrochlorothiazide 10-12.5 Mg Tabs (Lisinopril-hydrochlorothiazide) ..... 1 tablet by mouth daily Metoprolol Succinate 25 Mg Tb24 (Metoprolol succinate) ..... One tab. daily Nitrolingual 0.4 Mg/spray Soln (Nitroglycerin) ..... 1 spray prn 4.9gm. bottle Pravachol 40 Mg Tabs (Pravastatin sodium) ..... One tab. daily BP today: 136/94 Prior BP: 112/80 (04/11/2011) N uclear Stress Findings: 1. Normal myocardial perfusion imaging after vasodilator stress with Regadenoson. 2 . Normal left ventricular systolic function with a calculated ejection fraction of 53%. 3 . No obvious significant scintigraphic evidence of myocardial ischemia or scar. (04/26/2011) C ardiac Cath: EF - 35-40%. % Left Main stenosis: 70% stenosis. % LAD stenosis: 80%. % RCA stenosis: 99%. M oderate LV dysfunction. N ormal renal arteries. [facility] (12/17/2008) C arotid Doppler/Duplex: Normal (12/09/2009) C HOL: 159 (08/02/2011) LDL: 92 (08/02/2011) HDL: 44 (08/02/2011) T (08/02/2011) H CT: 45.6 (04/27/2011) Platelets: 271 THOUSAND/UL (04/27/2011) R BC: 4.66 MILLION/UL (04/27/2011) BUN: 16 (04/27/2011) Creat: 0.83 (04/27/2011) Glucose: 86 (04/27/2011) N a+: 140 (04/27/2011) K+: 4.5 (04/27/2011) Cl: 105 (04/27/2011) TSH: 0.02 (04/27/2011) T4 (total): 10.0 (04/27/2011) Madan Mack MD CHOL MGT: H er updated medication list for this problem includes: Pravachol 40 Mg Tabs (Pravastatin sodium) ..... One tab. daily C holesterol is acceptable on this dose. Would push for goal LDL of 70. The patient likes this dose of pravachol and reluctant to change because other medications have caused her significant GI upset. She is working through the of her as well, and has not settled into a regular diet and medication routine. No changes are made today. Toni Cortez NP 6 month follow-up: H er updated medication list for this problem includes: Levothroid 150 Mcg Tabs (Levothyroxine sodium) ..... One tab. daily Orders: T HYROID PANEL WITH TSH, 3RD GENERATION (7444) Madan Mack MD 6 month follow-up: H er updated medication list for this problem includes: Aspirin 81 Mg Tabs (Aspirin) ..... One tab. daily Lisinopril-hydrochlorothiazide 10-12.5 Mg Tabs (Lisinopril-hydrochlorothiazide) ..... 1 tablet by mouth daily Metoprolol Succinate 25 Mg Tb24 (Metoprolol succinate) ..... One tab. daily Madan Mack MD 6 month follow-up: H er updated medication list for this problem includes: Aspirin 81 Mg Tabs (Aspirin) ..... One tab. daily Lisinopril-hydrochlorothiazide 10-12.5 Mg Tabs (Lisinopril-hydrochlorothiazide) ..... 1 tablet by mouth daily Metoprolol Succinate 25 Mg Tb24 (Metoprolol succinate) ..... One tab. daily Nitrolingual 0.4 Mg/spray Soln (Nitroglycerin) ..... 1 spray prn 4.9gm. bottle BP today: 112/80 Prior BP: 122/84 (09/06/2010) C ardiac Cath: EF - 35-40%. % Left Main stenosis: 70% stenosis. % LAD stenosis: 80%. % RCA stenosis: 99%. M oderate LV dysfunction. N ormal renal arteries. [facility] (12/17/2008) C arotid Doppler/Duplex: Normal (12/09/2009) Madan Mack MD routine : H er updated medication list for this problem includes: Aspirin 81 Mg Tabs (Aspirin) ..... One tab. daily Lisinopril-hydrochlorothiazide 10-12.5 Mg Tabs (Lisinopril-hydrochlorothiazide) ..... 1 tablet by mouth daily Metoprolol Succinate 25 Mg Tb24 (Metoprolol succinate) ..... One tab. daily BP today: 122/84 Prior BP: 121/83 (02/22/2010) C ardiac Cath: EF - 35-40%. % Left Main stenosis: 70% stenosis. % LAD stenosis: 80%. % RCA stenosis: 99%. M oderate LV dysfunction. N ormal renal arteries. [facility] (12/17/2008) C arotid Doppler/Duplex: Normal (12/09/2009) E chocardiogram: Normal left ventricular size. Normal left ventricular wall thickness. Hypokinesis is present in the anterior septal wall. There is E to A wave reversal consistent with impaired LV relaxation . Normal E/E` 7.0. Left ventricular ejection fraction is estimated at 50%. There is mild enlargement of the left atrium. Normal pericardium with no pericardial or pleural effusion. Normal aortic root. No significant valvular abnormalities. (12/09/2009) Orders: Kishore CHENG ([id number]) Madan Mack MD routine : H er updated medication list for this problem includes: Aspirin 81 Mg Tabs (Aspirin) ..... One tab. daily Lisinopril-hydrochlorothiazide 10-12.5 Mg Tabs (Lisinopril-hydrochlorothiazide) ..... 1 tablet by mouth daily Metoprolol Succinate 25 Mg Tb24 (Metoprolol succinate) ..... One tab. daily BP today: 122/84 P rior BP: 121/83 (02/22/2010) Madan Mack MD routine : H er updated medication list for this problem includes: Levothroid 150 Mcg Tabs (Levothyroxine sodium) ..... One tab. daily Madan Mack MD routine : H er updated medication list for this problem includes: Aspirin 81 Mg Tabs (Aspirin) ..... One tab. daily Lisinopril-hydrochlorothiazide 10-12.5 Mg Tabs (Lisinopril-hydrochlorothiazide) ..... 1 tablet by mouth daily Metoprolol Succinate 25 Mg Tb24 (Metoprolol succinate) ..... One tab. daily BP today: 122/84 Prior BP: 121/83 (02/22/2010) C ardiac Cath: EF - 35-40%. % Left Main stenosis: 70% stenosis. % LAD stenosis: 80%. % RCA stenosis: 99%. M oderate LV dysfunction. N ormal renal arteries. [facility] (12/17/2008) C arotid Doppler/Duplex: Normal GC (12/09/2009) Madan Mack MD routine : H er updated medication list for this problem includes: Aspirin 81 Mg Tabs (Aspirin) ..... One tab. daily Lisinopril-hydrochlorothiazide 10-12.5 Mg Tabs (Lisinopril-hydrochlorothiazide) ..... 1 tablet by mouth daily Metoprolol Succinate 25 Mg Tb24 (Metoprolol succinate) ..... One tab. daily BP today: 122/84 Prior BP: 121/83 (02/22/2010) C ardiac Cath: EF - 35-40%. % Left Main stenosis: 70% stenosis. % LAD stenosis: 80%. % RCA stenosis: 99%. M oderate LV dysfunction. N ormal renal arteries. [facility] (12/17/2008) C arotid Doppler/Duplex: Normal GC (12/09/2009) Madan Mack MD routine Madan Mack MD f/u: H er updated medication list for this problem includes: Aspirin 81 Mg Tabs (Aspirin) ..... One tab. daily Lisinopril-hydrochlorothiazide 10-12.5 Mg Tabs (Lisinopril-hydrochlorothiazide) ..... 1 tablet by mouth daily Metoprolol Succinate 25 Mg Tb24 (Metoprolol succinate) ..... One tab. daily BP today: 121/83 P rior BP: 114/82 (06/28/2009) Madan Mack MD f/u: H er updated medication list for this problem includes: Levothroid 150 Mcg Tabs (Levothyroxine sodium) ..... One tab. daily Madan Mack MD f/u: H er updated medication list for this problem includes: Aspirin 81 Mg Tabs (Aspirin) ..... One tab. daily Lisinopril-hydrochlorothiazide 10-12.5 Mg Tabs (Lisinopril-hydrochlorothiazide) ..... 1 tablet by mouth daily Metoprolol Succinate 25 Mg Tb24 (Metoprolol succinate) ..... One tab. daily BP today: 121/83 Prior BP: 114/82 (06/28/2009) C ardiac Cath: EF - 35-40%. % Left Main stenosis: 70% stenosis. % LAD stenosis: 80%. % RCA stenosis: 99%. M oderate LV dysfunction. N ormal renal arteries. [facility] (12/17/2008) C arotid Doppler/Duplex: Normal GC (12/09/2009) Madan Mack MD f/u: H er updated medication list for this problem includes: Aspirin 81 Mg Tabs (Aspirin) ..... One tab. daily Lisinopril-hydrochlorothiazide 10-12.5 Mg Tabs (Lisinopril-hydrochlorothiazide) ..... 1 tablet by mouth daily Metoprolol Succinate 25 Mg Tb24 (Metoprolol succinate) ..... One tab. daily BP today: 121/83 Prior BP: 114/82 (06/28/2009) C ardiac Cath: EF - 35-40%. % Left Main stenosis: 70% stenosis. % LAD stenosis: 80%. % RCA stenosis: 99%. M oderate LV dysfunction. N ormal renal arteries. [facility] (12/17/2008) C arotid Doppler/Duplex: Normal GC (12/09/2009) Madan Mack MD 1 month follow-up [facility] Echo: H er updated medication list for this problem includes: Aspirin 81 Mg Tabs (Aspirin) ..... One tab. daily Lisinopril-hydrochlorothiazide Tabs (Lisinopril-hydrochlorothiazide tabs) ..... 1 tablet by mouth daily Metoprolol Succinate 25 Mg Tb24 (Metoprolol succinate) ..... 1/4 tab twice daily (6.25mg) daily BP today: 144/98 Prior BP: 127/85 (01/08/2009) C ardiac Cath: EF - 35-40%. % Left Main stenosis: 70% stenosis. % LAD stenosis: 80%. % RCA stenosis: 99%. M oderate LV dysfunction. N ormal renal arteries. [facility] (12/17/2008) Madan Mack MD 1 month follow-up [facility] Echo: H er updated medication list for this problem includes: Aspirin 81 Mg Tabs (Aspirin) ..... One tab. daily Lisinopril-hydrochlorothiazide Tabs (Lisinopril-hydrochlorothiazide tabs) ..... 1 tablet by mouth daily Metoprolol Succinate 25 Mg Tb24 (Metoprolol succinate) ..... 1/4 tab twice daily (6.25mg) daily BP today: 144/98 P rior BP: 127/85 (01/08/2009) Madan Mack MD 1 month follow-up [facility] Echo: H er updated medication list for this problem includes: Levothroid 150 Mcg Tabs (Levothyroxine sodium) ..... One tab. daily Madan Mack MD 1 month follow-up with Echo [place] Mack MD 1 month follow-up [facility] Echo: H er updated medication list for this problem includes: Aspirin 81 Mg Tabs (Aspirin) ..... One tab. daily Simvastatin 20 Mg Tabs (Simvastatin) ..... One tab. daily Lisinopril-hydrochlorothiazide Tabs (Lisinopril-hydrochlorothiazide tabs) ..... 1 tablet by mouth daily Niaspan 500 Mg Tbcr (Niacin (antihyperlipidemic)) ..... One tab. at bedtime Metoprolol Succinate 25 Mg Tb24 (Metoprolol succinate) ..... 1/4 tab twice daily (6.25mg) daily BP today: 144/98 Prior BP: 127/85 (01/08/2009) C ardiac Cath: EF - 35-40%. % Left Main stenosis: 70% stenosis. % LAD stenosis: 80%. % RCA stenosis: 99%. M oderate LV dysfunction. N ormal renal arteries. [facility] (12/17/2008) Madan Mack MD post cabg: H er updated medication list for this problem includes: Levothroid 150 Mcg Tabs (Levothyroxine sodium) ..... One tab. daily Clifton Hough MD Date Name TSH, 3RD GENERATION W/REFLEX TO FT4 Carotid Duplex Bilat eral Complete Echo Venous Doppler Bilat eral LE Venous Doppler Unila teral RUE Carotid Duplex Bilat eral LIPID PANEL THYROID PANEL WITH T SH, 3RD GENERATION COMPREHENSIVE METABO LIC PANEL W/EGFR CBC (INCLUDES DIFF/P LT) COMPREHENSIVE METABO LIC PANEL W/EGFR THYROID PANEL WITH T SH, 3RD GENERATION CBC (INCLUDES DIFF/P LT) LIPID PANEL Complete Echo COMPREHENSIVE METABO LIC PANEL W/EGFR LIPID PANEL Complete Echo HISTORY OF PROCEDURES Procedure Date Procedure Name Provider Procedure Notes S tatus EKG Madan Mack MD completed Event Monitor Madan Mack MD comple suman EKG Madan Mack MD completed EKG Roel Patel MD complete d EKG Navarro Malhotra RN completed EKG Madan Mack MD completed EKG Madan Mack MD completed EKG Madan Mack MD completed
[2024-10-16 08:30] VITALS: BP 140/88; PULSE 79; RESP 16; TEMP 36.3; O2SAT 98; BMI 29.7
[2024-10-16] MEDS: LACTATED RINGERS 1,000 ML 150 ML IV CONT (08:37)
--- NOTE | 2024-10-16 09:16 | P.PNAN_ITS ---
Anes - Initial Pre Proc Eval Procedure: Operation Date: 10/16/24 10:00 Proposed Procedures p Screening Colonoscopy - Trevon Flower MD Date/Time: 10/16/24 09:16 Surgeon: Trevon Flower MD Pre Op Diagnosis: screening colon Patient Data Age: 64 Gender: F Height: 1.57 m Weight: 73.6 kg Last Vital Signs Temp 36.3 C L 10/16/24 08:30 Pulse 79 10/16/24 08:30 Resp 16 10/16/24 08:30 BP 140/88 10/16/24 08:30 Pulse Ox 98 10/16/24 08:30 O2 Del Method Room Air 10/16/24 08:30 Allergies Allergy/AdvReac Type Severity Reaction Status Date / Time adhesive tape Allergy Intermediate Rash Verified 10/16/24 08:29 codeine Allergy Intermediate Rash, Verified 10/16/24 08:29 nervousness Home Medications ?Medication ?Instructions ?Recorded ?Confirmed ?Type aspirin 81 mg tablet,delayed 81 mg PO DAILY 06/26/19 10/16/24 History release (Adult Low Dose Aspirin) multivitamin 1 tablet PO DAILY 12/12/22 10/16/24 History biotin 2,500 mcg capsule 6,000 mcg PO DAILY 11/05/23 10/16/24 History cetirizine 10 mg tablet 10 mg PO DAILY #90 tabs 02/29/24 10/16/24 Rx levothyroxine 75 mcg tablet 75 mcg PO DAILY #90 tabs 07/07/24 10/16/24 Rx losartan 50 mg tablet 50 mg PO BID #180 tabs 08/08/24 10/16/24 Rx ranolazine 500 mg tablet,extended See Rx Instructions .Route 08/25/24 10/16/24 Rx release,12 hr .COMPLEX #180 tabs atorvastatin 20 mg tablet See Rx Instructions .Route 10/01/24 10/16/24 Rx .COMPLEX #90 tabs clopidogrel 75 mg tablet See Rx Instructions .Route 10/01/24 10/16/24 Rx .COMPLEX #90 tabs pantoprazole 40 mg tablet,delayed 40 mg PO BID #180 tabs 10/01/24 10/16/24 Rx release Patient hx anesthesia problems: none Family hx anesthesia problems: none Results Review: All pre-operative results and documents have been reviewed as part of the pre- operative evaluation. [facility] Past Medical History Medical History Urinary symptom or sign Left elbow pain Foot pain, bilateral Bilateral thumb pain Noncompliance Hypothyroidism Arthritis of carpometacarpal (CMC) joint of both thumbs Heart disease History of heart attack CAD (coronary artery disease) Allergies Coronary atherosclerosis of artery bypass graft Thyroid disorder Hypertension Old [place] (myocardial infarction) Congestive heart failure Arthritis Seasonal allergies Surgical History Surgical History History of total left hip replacement 2018 H/O: hysterectomy History of cholecystectomy History of appendectomy History of open heart surgery 2008 & 2013 Hip joint replacement status Family History Family History Mother , Age 69 Myocardial infarct Father , Age 72 Myocardial infarct Grandparent Myocardial infarct Grandparent , Unknown Cause of No problems noted. Grandparent Myocardial infarct Grandparent Aneurysm Other Alcoholism Brain cancer Breast cancer Depression Diabetes mellitus Heart disease Hypertension Thyroid disorder Social History Social History (Updated 09/26/24 @ 10:41 by Tashia Pradhan MA) Smoking status: Former smoker Alcohol intake: current Substance use: never Do You Feel Safe in your Home?: Yes Lack of Transportation: No Lack of Food: Never True Current Housing: I Have Housing Concerned About Future Housing: No Difficulty Paying Gas/Electric Bills: No Difficulty Paying for Meds: No Currently Unemployed: No Education: High School Diploma/GED Difficulty w/ Childcare or Family Care: No Living arrangements: with family 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 Informed Consent: The patient's anesthetic plan and its attendant risks and benefits were discussed with the patient/family/POA. Questions were solicited and answers provided to the satisfaction of the patient/family/POA.
--- NOTE | 2024-10-16 09:16 | P.HP_ITS ---
History of Present Illness History of Present Illness Consent: Risks, benefits, and alternatives have been discussed and questions answered. Patient agrees to proceed with procedure. Chief complaint: screening colon Narrative: Natalya Tran is a 64 year old female here for colonoscopy, last one more than 10 years ago, had diverticulitis 05/2024 Review of Systems Review of Systems: All systems reviewed & are unremarkable except as noted in HPI and below PMFSH Past Medical History Medical History (Updated 10/16/24 @ 09:17 by Trevon Flower MD) History of diverticulitis of colon Urinary symptom or sign Left elbow pain Foot pain, bilateral Bilateral thumb pain Noncompliance Hypothyroidism Arthritis of carpometacarpal (CMC) joint of both thumbs Heart disease History of heart attack CAD (coronary artery disease) Allergies Coronary atherosclerosis of artery bypass graft Thyroid disorder Hypertension Old [place] (myocardial infarction) Congestive heart failure Arthritis Seasonal allergies Surgical History Surgical History History of total left hip replacement 2018 H/O: hysterectomy History of cholecystectomy History of appendectomy History of open heart surgery 2008 & 2013 Hip joint replacement status Family History Family History Mother , Age 69 Myocardial infarct Father , Age 72 Myocardial infarct Grandparent Myocardial infarct Grandparent , Unknown Cause of No problems noted. Grandparent Myocardial infarct Grandparent Aneurysm Other Alcoholism Brain cancer Breast cancer Depression Diabetes mellitus Heart disease Hypertension Thyroid disorder Social History Social History (Updated 09/26/24 @ 10:41 by Tashia Pradhan MA) Smoking status: Former smoker Alcohol intake: current Substance use: never Do You Feel Safe in your Home?: Yes Lack of Transportation: No Lack of Food: Never True Current Housing: I Have Housing Concerned About Future Housing: No Difficulty Paying Gas/Electric Bills: No Difficulty Paying for Meds: No Currently Unemployed: No Education: High School Diploma/GED Difficulty w/ Childcare or Family Care: No Living arrangements: with family 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 Gender identity (if verbalized by the patient): Female Meds Home Medications and Allergies Home Medications ?Medication ?Instructions ?Recorded ?Confirmed ?Type aspirin 81 mg tablet,delayed 81 mg PO DAILY 06/26/19 10/16/24 History release (Adult Low Dose Aspirin) multivitamin 1 tablet PO DAILY 12/12/22 10/16/24 History biotin 2,500 mcg capsule 6,000 mcg PO DAILY 11/05/23 10/16/24 History cetirizine 10 mg tablet 10 mg PO DAILY #90 tabs 02/29/24 10/16/24 Rx levothyroxine 75 mcg tablet 75 mcg PO DAILY #90 tabs 07/07/24 10/16/24 Rx losartan 50 mg tablet 50 mg PO BID #180 tabs 08/08/24 10/16/24 Rx ranolazine 500 mg tablet,extended See Rx Instructions .Route 08/25/24 10/16/24 Rx release,12 hr .COMPLEX #180 tabs atorvastatin 20 mg tablet See Rx Instructions .Route 10/01/24 10/16/24 Rx .COMPLEX #90 tabs clopidogrel 75 mg tablet See Rx Instructions .Route 10/01/24 10/16/24 Rx .COMPLEX #90 tabs pantoprazole 40 mg tablet,delayed 40 mg PO BID #180 tabs 10/01/24 10/16/24 Rx release Allergies Allergy/AdvReac Type Severity Reaction Status Date / Time adhesive tape Allergy Intermediate Rash Verified 10/16/24 08:29 codeine Allergy Intermediate Rash, Verified 10/16/24 08:29 nervousness Vital Signs Vital Signs - 24 hr 10/16/24 08:30 Temperature 97.4 F L Pulse Rate 79 Respiratory Rate 16 Blood Pressure 140/88 Pulse Oximetry 98 Oxygen Delivery Room Air Exam Const: General: comfortable and no acute distress HENMT: Face/Nose/Sinus: Normal nares present Eyes: General: appearance normal, both eyes and all related structures Neck: Neck: no JVD Resp: Auscultation: clear to auscultation bilaterally Cardio: Rate: regular rate Rhythm: regular rhythm GI: Inspection: non-distended GI Palp: Yes Soft to palpation Skin: General skin exam: normal color Neuro: Speech: normal speech Extrem: General: normal to inspection Psych: Mental Status: mental status grossly normal Assessment and Plan Assessment and plan (1) History of diverticulitis of colon: Code(s): Z87.19 - Personal history of other diseases of the digestive system Status: Acute Assessment and Plan: colonoscopy
[2024-10-16 09:37] VITALS: BP 112/61; PULSE 68; RESP 20; O2SAT 97
[2024-10-16 09:47] VITALS: BP 110/67; PULSE 60; RESP 18; O2SAT 97
[2024-10-16 09:57] VITALS: BP 126/82; PULSE 58; RESP 18; O2SAT 97
== END 2024-10-16 10:04 | disposition home or self-care (01) ==
PROVIDERS: PCP Emergency Medicine; Referring Provider Nurse Practitioner Family; Visit Provider Internal Medicine Gastroenterology
PROC: 0DJD8ZZ Inspection of Lower Intestinal Tract, Via Natural or Artificial Opening Endoscopic (ICD-10-PCS; CPT 45378; principal; 2024-10-16 10:00)
DX: Z12.11 Encounter for screening for malignant neoplasm of colon (principal); K57.30 Diverticulosis of large intestine without perforation or abscess without bleeding; K64.8 Other hemorrhoids; Z87.19 Personal history of other diseases of the digestive system; Z87.891 Personal history of nicotine dependence; E66.9 Obesity, unspecified; Z68.29 Body mass index [BMI] 29.0-29.9, adult
CPT/HCPCS: 45378; J2704; J7120

== ENCOUNTER 2025-01-14 10:02 | Outpatient (CLI) | payer OTHER, SELFPAY ==
--- OUTSIDE RECORDS SUMMARY | 2025-01-14 10:16 | XMS_ITS | Clinical Summary ---
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 Active Active Problems Problem Noted Date Diagnosed Date Cardiomyopathy, ischemic 08/07/2022 Essential hypertension 08/07/2022 Hypercholesteremia 08/07/2022 Other emphysema 08/07/2022 Hx of CABG 08/01/2022 S/P MVR (mitral valve repair) 08/01/2022 Primary osteoarthritis of right hip 03/10/2018 Chest pain due to coronary artery disease 2017 Coronary artery disease of n ative artery of [place] heart with stable angina pectoris 12/10/2017 Family [...] Brother Jin Father Luis Johnston Maternal Grandmother Sruhti Mother Rere Johnston Mother's Brother Ross Mother's Sister 1 Caroline Mother's Sister 2 Bruna Social History Tobacco Use Types Packs/Day Years [...] on file Legal Sex Female 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 Gender Identity Female 07/25/2022 9:56 AM 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 Sexual Orientation Not on file Occupation Industry [...] 2:12 PM CDT Height 154.9 cm (5' 1) 06/12/2024 2:12 PM CDT Body Mass Index [...] 5 season) 2024 11/15/2020, 10/24/2020 Influenza Vaccine (Season Ended) 2025 04/21/2021, 05/08/2020, 06/27/2019, Additional history exists Zoster Vaccine Completed 07/17/2020, 05/08/2020 Medical Devices Implanted Type Area Resource Development Manager Device Identifier Shelf Expiration Date Model / Serial / Lot [employer] [id number] Trilogy 6.5mm 30mm Self Tap Acetabular Cortical Screw Bone - [id number] Implanted:Qty: 1 on 03/18/2018 by Jered Rudd MD at [facility] Screw Right: Hip [employer] 02/09/2027 [id number] / / [id number] [employer] [id number] 52mm Limit Hole Hip E Hemisphere Shell Acetabular Pps - [id number] Implanted:Qty: 1 on 03/18/2018 by Jered Rudd MD at [facility] Right: Hip [employer] 02/15/2028 [id number] / / [id number] Liner Acetabular G7 E1 E Id36 Mm Hip High Wall - [id number] Implanted:Qty: 1 on 03/18/2018 by Jered Rudd MD at [facility] Right: Hip [employer] 11/23/2022 [id number] / / [id number] [employer] [id number] [id number] 36mm Type 1 Hip -6mm Offset Head Femoral Cocr - [id number] Implanted:Qty: 1 on 03/18/2018 by Jered Rudd MD at [facility] Right: Hip [employer] [id number] 01/24/2028 [id number] / / [id number] [employer] [id number] Taperloc 134mm Type 1 Full Profile Hip 133d 7 High Offset Taper - [id number] Implanted:Qty: 1 on 03/18/2018 by Jered Rudd MD at [facility] Right: Hip [employer] [id number] 12/11/2023 [id number] / / [id number] Insurance [place] [address] [address] [address] CLAIMS Advance Directives For more information, please contact: [phone] * Full Code (Latest Code Status on File) Date Activated Date Inactivated Comments 10/05/2018 5:25 PM 10/08/2018 8:41 PM * Full Code Date Activated Date Inactivated Comments 03/18/2018 1:45 PM 03/20/2018 4:36 PM * Full Code Date Activated Date Inactivated Comments 12/09/2017 3:38 PM 12/14/2017 12:34 AM Care Teams Warehouse Examiner Relationship Specialty Start Date End Date Eren Chávez DO PCP - General Family Medicine 01/16/23 Tomi Florentino, PT Physical Therapist Physical Therapy 02/11/18 Lázaro Somers MD Surgeon Trauma Surgery 10/08/18
--- OUTSIDE RECORDS SUMMARY | 2025-01-14 10:16 | XMS_ITS | CONTINUITY OF CARE DOCUMENT ---
Author Name jaylyn de la o Address Unknown Organization [facility] Address [address] [place] [address] Phone [phone] Care Team Providers Care Kiln Placer Name Role Phone Frederick JUDD, Madan Unavailable Frederick JUDD, Madan Unavailable [phone] Socorro JUDD, Vicki Unavailable [phone] PROBLEMS Condition Status Date Provider Notes Bradycardia active Aileen Chrun HYPOTHYROIDISM active [place] Stahlschmidt Obesity active Madan Mack MD Scoliosis active Madan Mack MD ARTHRITIS, severe active Madan Mack MD CADCABG, HX OF-08/26 REDO SVG - OM, SVG-LAD, RA-PDA- MVR, cath 12/10/17 patent grafts 100% OM2 s/p stent, EF 40% active Madan Mack MD TIA active Roel Patel MD DIZZINESS completed - Madan Mack MD DVT- POST SURGERY IN AUG completed - Madan baires MD PE- POST SURGERY IN AUG completed - Madan murphy MD CABG, HX OF REDO SVG- O M, SVG-LAD, RA-PDA- MVR completed - Madan Mack MD MITRAL REGURG, MODERATE TO S EVERE S/P MV RING active Madan Mack MD PULMONARY EMBOLISM ,DVT Off XARELTO 04/26 active Madan Mack MD SHORTNESS OF BREATH- 07/25 T EE ABN MOD TO SEVERE MR active ? Madan Mack MD DYSLIPIDEMIA active Toni Cortez HEBREW PROFESSOR CAD-11/20 CAROTID NL completed - Madan Pimentel CABG-07/25 CATH ABN 12/19 LOPEZ-LAD,SVG-1DIAG,SVG-OM,SVG- RCA completed - Madan Mack MD TOBACCO ABUSE active ? Madan Mack MD HTN ESSENTIAL active ? Madan Mack MD CHEST PAIN-10/22 NUC NEG completed - Madan murphy MD ENCOUNTERS Date Type Provider Location Encounter Diag nosis - In-person encounter Office Visit Madan Mack MD [facility] - In-person encounter Office Visit Madan Mack MD [facility] - In-person encounter Office Visit Madan Mack MD [facility] ARTHRITIS, severeScoliosisObesity - In-person encounter Office Visit Madan Mack MD [facility] CABG-07/25 CATH ABN 12/19 LOPEZ-LAD,SVG-1DIAG,SVG-OM,SV G- RCACAD-11/20 CAROTID NLCABG, HX OF-08/26 REDO SVG- OM, SVG-LAD, RA-PDA- MVRCADCABG, HX OF-08/26 REDO SVG- OM, SVG-LAD, RA-PDA- MVR, cath 12/10/17 patent grafts 100% OM2 s/p stent, EF 40% - In-person encounter Office Visit Madan Mack MD [facility] - In-person encounter Office Visit Madan Mack MD [facility] - In-person encounter Office Visit Madan Mack MD [facility] CHEST PAIN-10/22 NUC NEGHTN ESSENTIALPULMONARY EMBOLISM ,DVT Off XARELTO 04/26PE- [facility] Visit Madan Mack MD [facility] - In-person encounter Office Visit Roel Patel MD [facility] TIA - In-person encounter Office Visit Madan Mack MD [facility] PULMONARY EMBOLISM ,DVT Off XARELTO 04/26MITRAL REGURG, MODERATE TO SEVERE S/P MV RING - In-person encounter Office Visit Madan Mack MD [facility] SHORTNESS OF BREATH- 07/25 GILMA ABN MOD TO SEVERE MR - In-person encounter Office Visit Madan Mack MD [facility] - In-person encounter Office Visit Madan Mack MD [facility] - In-person encounter Office Visit Madan Mack MD [facility] SHORTNESS OF BREATH- 07/25 GILMA ABN MOD TO SEVERE MR - In-person encounter Office Visit Madan Mack MD [facility] - In-person encounter Office Visit Madan Mack MD [facility] - In-person encounter Office Visit Madan Mack MD [facility] - In-person encounter Office Visit Madan Mack MD [facility] TOBACCO ABUSE - In-person encounter Office Visit Madan Mack MD [facility] - In-person encounter Office Visit King Grace MD [facility] DYSLIPIDEMIA - In-person encounter Office Visit Madan Mack MD [facility] - In-person encounter Office Visit Madan Mack MD [facility] - In-person encounter Office Visit Madan Mack MD [facility] - In-person encounter Office Visit Madan Mack MD [facility] - In-person encounter Office Visit Madan Mack MD [facility] - In-person encounter Office Visit Clifton Hough MD [facility] TOBACCO ABUSECABG-07/25 CATH ABN 12/19 LOPEZ-LAD,SVG-1DIAG,SVG-OM,SV G- RCA VITAL SIGNS Date Observation Value Provider Body Mass Index (Ratio) 41.15 kg/m2 Hamlet Mack MD blood pressure, diastolic 60 mm[Hg] [facility], systolic 100 mm[Hg] Charly perez Chapman oxygen saturation, oximetry 98 % [facility] respiratory rate E&M 16 /min Madhu Chapman pulse rate 92 /min Madhu Chapman weight E&M 225 [lb_av] Vowinckel Chapman height E&M 62 [in_i] Madhu Chapman Body Mass Index (Ratio) 40.23 kg/m2 [...] nannette pulse rate 68 /min Fiordaliza Tamayoe [facility] weight E&M 217.2 [lb_av] Fiordaliza Tamayo altagracia height E&M 62 [in_i] Fiordaliza Jenkins [facility] Body Mass Index (Ratio) 39.69 kg/m2 Hamlet Mack MD blood pressure, cuff size large Ke rri Roniproctor hospitaler blood pressure, diastolic 90 mm[Hg] Ke rri Roniproctor hospitaler blood pressure, systolic 140 mm[Hg] Cheo ri [facility], oximetry 97 % Fiordaliza Tamayoaltagracia respiratory rate E&M 24 /min Fiordaliza Evans [facility]her[facility] hospital[facility]am pulse rate 84 /min Fiordaliza Jenkins [facility] weight E&M 217 [lb_av] Fiordaliza Jenkins [facility] height E&M 62 [in_i] Fiordaliza Jenkins [facility] blood pressure, diastolic 81 mm[Hg] Me khan [...] E&M 14 /min Stephanie Porter weight E&M 197 [lb_av] Stephanie Porter [...] Index (Ratio) 38.55 kg/m2 Lokesh da [address] [facility] weight E&M 210 [lb_av] Cheryl Ventimig ishan [facility] Body Mass Index (Ratio) 38.18 kg/m2 Navarro Menas RN blood pressure, diastolic 95 mm[Hg] [facility] l[facility], systolic 138 mm[Hg] Navarro Menas RN pulse rate 88 /min [facility] saturation, oximetry 96 % Navarro Menas [...] Nietoran blood pressure, diastolic 94 mm[Hg] Gladys [facility] blood pressure, systolic 136 mm[Hg] [facility] pulse rate 84 /min [facility] oxygen saturation, oximetry 98 % Melany [facility] respiratory rate E&M 18 /min Melany [facility] weight E&M 174 [lb_av] [facility] Body Mass Index (Ratio) 32.86 kg/m2 Carmelo Cortez HEBREW PROFESSOR weight E&M 179 [lb_av] Toni dela cruz HEBREW PROFESSOR height E&M 62 [in_i] Toni dela cruz HEBREW PROFESSOR blood pressure, diastolic 80 mm[Hg] An seph [place] blood pressure, systolic 112 mm[Hg] Hubert mervin [place] pulse rate 86 /min Luis [place] [...] u[IU]/mL [employer]Log[employer] 0.450-4.500 cholesterol/HDL ratio, serum 3.0 [facility] HEBREW PROFESSOR triglyceride, serum, fasting 148 mg/dL [facility] HEBREW PROFESSOR HDL cholesterol, serum 49 mg[facility] PROFESS[facility] LDL cholesterol, serum 71 mg/dL [facility] HE[facility]W PROFESSOR cholesterol, serum 150 mg/dL [facility] HEBREW PROFESSOR triglyceride, target level 150 mg/dL [facility] HEBREW PROFESSOR HDL cholesterol, serum, target level 40 mg/dL [facility] HEBREW PROFESSOR LDL target level 100 mg/dL [facility] HEBREW PROFESSOR cholesterol, target level 200 mg/dL [facility] HEBREW PROFESSOR TOTAL NON-HDL-C (LDL VLDL) [address] [facility] cholesterol/HDL ratio, serum [address] [facility] cholesterol, serum 157 mg/dL [place] [address] [facility] triglyceride, target level 150 mg/dL Cheryl [address] [facility] HDL cholesterol, serum, target level 40 mg/dL Cheryl [address] [facility] triglyceride, serum, fasting 113 mg/dL Cheryl [address] [facility] Normal HDL cholesterol, serum 52 mg/dL Cheryl [facility] [facility] Normal LDL cholesterol, serum 83 mg/dL Cheryl [facility] [facility] Normal LDL target level 100 mg/[facility] cholesterol, target level 200 mg/dL [facility] TOTAL NON-HDL-C (LDL VLDL) 75 [facility] cholesterol/HDL ratio, serum 2.6 [facility] triglyceride, serum, fasting 144 mg/dL [facility] HDL cholesterol, serum 46 mg/dL [facility] LDL cholesterol, serum 46 mg/dL [facility] cholesterol, serum 121 mg/dL [facility] TOTAL NON-HDL-C (LDL VLDL) 162 [facility] alanine aminotransferase (SGPT), serum 26 1/L [facility] aspartate aminotransferase (SGOT), serum 23 1/L [facility] cholesterol/HDL ratio, serum 5.1 [facility] triglyceride, serum, fasting 187 mg/dL [facility] HDL cholesterol, serum 39 mg/dL [facility] LDL cholesterol, serum 125 mg/dL [facility] cholesterol, serum 202 mg/dL [facility] LDL target level 70 mg/dL [facility] basophils as percent of blood leukocytes [...] Normal Absolute Neutrophil count 4758 cells/mcL LinkLogic [id number] Normal platelet count 280 THOUSAND/UL [employer]Log[employer] 140-400 [...] TOTAL NON-HDL-C (LDL VLDL) 116 Lacretia Diego HEBREW PROFESSOR alanine aminotransferase (SGPT), serum 17 1/L Lacretia Diego HEBREW PROFESSOR aspartate aminotransferase (SGOT), serum 21 1/L Lacretia Diego HEBREW PROFESSOR cholesterol/HDL ratio, serum 3.7 Lacretia Cortez HEBREW PROFESSOR triglyceride, serum, fasting 120 mg/dL Lacretia Diego HEBREW PROFESSOR HDL cholesterol, serum 44 mg/dL Toni Cortez HEBREW PROFESSOR LDL cholesterol, serum 92 mg/dL Toni Cortez HEBREW PROFESSOR cholesterol, serum 159 mg/dL Toni Cortez HEBREW PROFESSOR triglyceride, target level 150 mg/dL Toni Cortez HEBREW PROFESSOR HDL cholesterol, serum, target level 40 mg/dL Toni Cortez HEBREW PROFESSOR LDL target level 100 mg/dL Lacralfredo Cortez HEBREW PROFESSOR cholesterol, target level 200 mg/dL Toni Cortez HEBREW PROFESSOR basophils as percent of blood leukocytes 0.2 [...] Normal Absolute Neutrophil count 6315 cells/mcL [employer] ([id number]) Normal platelet count 271 THOUSAND/UL [employer]Logic (140-400) [...] completed one pill daily 01/21 - 11/19 Madhu Adela PappasYRTEC ALLERGY CAPSULE active once a [...] TABLET active ONE TAB. DAILY Nadia Lai HEBREW PROFESSOR DYSLIPIDEMIA KLOR-CON M10 10 MEQ ORAL TABLET [...] TAB. DAILY 04/27 - 04/03 Nadia Lai HEBREW PROFESSOR NITROLINGUAL 0.4 MG/SPRAY TRANSLINGUAL SOLUTION completed 1 [...] Geoffrey COMBIVENT AEROSOL completed - 08/28 Radha [place] DULCOLAX STOOL SOFTENER CAPSULE completed one tab [...] Madan Mack MD seatbelt usage 100 % [facility] exercise type bicycling [facility] physical exercise, frequency, days per week 6 /wk [facility] alcohol counseling no [facility] In the past 3 months , have you been waking up wanting to use drugs? (CAGE substance use question #4) N [facility] In the past 3 months , have you felt guilty or bad about using drugs? (CAGE substance use question #3) N [facility] In the past 3 months , has anyone annoyed you by telling you to cut down or stop using drugs? (CAGE substance use question #2) N [facility] In the past 3 months , have you felt you should cut down or stop using drugs?(CAGE substance use question #1) N [facility] alcohol use, average drinks per day 0 /d [facility] alcohol use yes [facility] caffeine use, averag e drinks per day yes [facility] drug use none [facility] passive cigarette sm irina exposure yes Madhu Acme chewing tobacco use no Madhu Acme cigar use no Madhu Acme smoking, year quit 2011 Madhu acevedo number of years as a smoker 10 years or more Madhu Acme smoking, date started 1976 inter mittant periods of cessation Madhu Acme smoking history, tot al pack/year 2011 Madhu Acme smoking history, tot al pack/day 10-12 cig day Madhu Acme cigarette use yes Madhu Acme smoking status Former smoker Madhu [facility] social history revie wed E&M reviewed - no changes required Madan Mack MD seatbelt usage 100 % [facility] exercise type bicycling [facility] physical exercise, frequency, days per week 6 /wk [facility] alcohol counseling no [facility] s In the past 3 months , have you been waking up wanting to use drugs? (CAGE substance use question #4) N [facility] In the past 3 months , have you felt guilty or bad about using drugs? (CAGE substance use question #3) N [facility] In the past 3 months , has anyone annoyed you by telling you to cut down or stop using drugs? (CAGE substance use question #2) N [facility] In the past 3 months , have you felt you should cut down or stop using drugs?(CAGE substance use question #1) N [facility] alcohol use, average drinks per day 0 /d [facility] alcohol use yes [facility] caffeine use, averag e drinks per day yes [facility] drug use none [facility] passive cigarette sm irina exposure yes [facility] chewing tobacco use no [facility] cigar use no [facility] smoking, year quit 2011 Hannaestrella Cummings s [...] drugs? (CAGE substance use question #2) N Fiordaliza Weeks In the past 3 months , have you felt you should cut down or stop using drugs?(CAGE substance use question #1) N Fiordaliza Weeks alcohol use, average drinks per day 0 /d Fiordaliza Weeks alcohol use yes Fiordaliza camara caffeine use, averag e drinks per day yes Fiordaliza Weeks drug use none Fiordaliza camara passive cigarette sm irina exposure yes Fiordaliza Weeks chewing tobacco use no Fiordaliza aranda cigar use no Fiordaliza Jenkins hoa smoking, [...] Mack MD seatbelt usage 100 % Fiordaliza Julianuqeenie rivera exercise type bicycling Fiordaliza Gainesannamarie altagracia [...] Porter smoking, year quit 2011 Stephanie King [facility] number of years as a smoker 10 years or more Stephanie Porter smoking, date started 1976 inter mittant periods of cessation Stephanie Porter smoking history, tot al pack/year 2011 Stephanie Porter smoking history, tot al pack/day 10-12 cig day Stephanie Porter cigarette use yes Stephanie Porter smoking status Former smoker Stephanie Arce nn smoking/tobacco cess ation, patient education and counseling yes Vivian Weiss HEBREW PROFESSOR smoking status Former smoker Vivian cartwright HEBREW PROFESSOR social history revie wed E&M reviewed - no changes required Madan Mack MD social history revie wed E&M reviewed Madan Mack MD smoking, year quit [address] [facility] [facility], tot al pack/year 2011 Madan [...] days per week 6 /wk Cherylfiona Torrezmiedaia [facility] exercise type bicycling Cherylfiona Torrezmi glia [facility] social history revie wed E&M reviewed Cheryl Lorenicolewiley [facility] smoking history, tot al pack/year [address] [facility] social history revie wed E&M reviewed Madan Mack MD smoking history, tot al pack/year 2012 Navarro Malhotra RN social history revie wed E&M reviewed Madna Mack MD passive cigarette sm irina exposure [...] history, tot al pack/year 2011 Nadia Lai HEBREW PROFESSOR smoking, date started 1977 inter mittant periods of cessation Nadia Ming HEBREW PROFESSOR smoking history, tot al pack/day 10-12 cig day Nadia Ming HEBREW PROFESSOR chewing tobacco use no Nadia celeste HEBREW PROFESSOR cigar use no Nadia Ming HEBREW PROFESSOR cigarette use yes Nadia Lai N P smoking status current every day smoker Elizabeth Lai HEBREW PROFESSOR quit smoking, stage quit Nadia Florin celeste HEBREW PROFESSOR smoking/tobacco cess ation, patient education and counseling yes Nadia Ming HEBREW PROFESSOR social history revie wed E&M reviewed Madan Mack MD social history revie wed E&M reviewed Madan Mack MD smoking/tobacco cess ation, patient education and counseling yes Carmeloalfredo Cortez HEBREW PROFESSOR smoking status current Toni Pj davis HEBREW PROFESSOR social history revie wed E&M reviewed Toni Cortez HEBREW PROFESSOR social history revie wed E&M reviewed Madan [...] Mood and affect are normal. 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 One tab. daily Vivian Weiss NP follow up,isa zuñiga s: H [...] TCA with a 3 x 20 mm wiyot RCA PDA vessel with a Sprinter balloon. - [facility] (07/06/2013) Madan Mack MD Follow Up: H er updated medication list for this problem includes: Aspirin 81 Mg Tabs (Aspirin) ..... One tab. three times a week Carotid Duplex Scan: N ormal carotid duplex examination. Vertebral flow is antegrade bilaterally. - [facility] (11/04/2013) Madan Mack MD : H er updated medication list for this problem includes: Metoprolol Tartrate 25 Mg Tabs (Metoprolol tartrate) ..... 1/2 tab at bedtime Orders: E KG ([id number]) Roel Patel MD : H er updated [...] TCA with a 3 x 20 mm wiyot RCA PDA vessel with a Sprinter balloon. - [facility] (07/06/2013) C arotid Doppler/Duplex: Normal GC (12/09/2009) [...] TCA with a 3 x 20 mm wiyot RCA PDA vessel with a Sprinter balloon. - [facility] (07/06/2013) C arotid Doppler/Duplex: Normal (12/09/2009) C [...] TCA with a 3 x 20 mm wiyot RCA PDA vessel with a Sprinter balloon. - [facility] (07/06/2013) C arotid Doppler/Duplex: Normal (12/09/2009) C [...] 0 flow to GRAYSON 1 flow with gnosticist of a trace of blood flow into the PDA. Intra-arterial Integrilin administration given. Atretic LOPEZ to graft. Occluded vein graft to the OM and diagonal. The patient needed defibrillation three times during the procedure as her rhythm had degenerated to v-fib, most likely related to wire manipulation. - [facility] (07/06/2013) C ardiac Cath Comments: PTCA of vein graft to the RCA with a 5 mm x 12 mm TREK balloon. P TCA with a 3 x 20 mm wiyot RCA PDA vessel with a Sprinter balloon. - [facility] (07/06/2013) H CT: 41.3 (11/14/2011) Platelets: 280 [...] oderate LV dysfunction. N ormal renal arteries. [facility] (12/17/2008) Carotid Doppler/Duplex: Normal (12/09/2009) C HOL: [...] oderate LV dysfunction. N ormal renal arteries. [facility] (12/17/2008) H CT: 41.3 (11/14/2011) Platelets: 280 [...] oderate LV dysfunction. N ormal renal arteries. [facility] (12/17/2008) C arotid Doppler/Duplex: Normal (12/09/2009) C [...] oderate LV dysfunction. N ormal renal arteries. [facility] (12/17/2008) H CT: 41.3 (11/14/2011) Platelets: 280 [...] oderate LV dysfunction. N ormal renal arteries. [facility] (12/17/2008) H CT: 41.3 (11/14/2011) Platelets: 280 [...] oderate LV dysfunction. N ormal renal arteries. [facility] (12/17/2008) C arotid Doppler/Duplex: Normal (12/09/2009) C [...] oderate LV dysfunction. N ormal renal arteries. [facility] (12/17/2008) C arotid Doppler/Duplex: Normal (12/09/2009) C HOL: 179 (11/14/2011) LDL: 93 MG/DL (CALC) (11/14/2011) HDL: 55 (11/14/2011) T (11/14/2011) H CT: 41.3 (11/14/2011) Platelets: 280 THOUSAND/UL (11/14/2011) R BC: 4.39 MILLION/UL (11/14/2011) BUN: 17 (11/14/2011) Creat: 0.76 (11/14/2011) Glucose: 100 (11/14/2011) N a+: 141 (11/14/2011) K+: 4.4 (11/14/2011) Cl: 105 (11/14/2011) TSH: <0.01 mIU/L (11/14/2011) T4 (total): 10.5 (11/14/2011) Madan aMck MD follow up: H er updated medication [...] tab. daily Orders: C BC (INCLUDES DIFF/PLT) (1592) C OMPREHENSIVE METABOLIC PANEL W/EGFR (14359) T HYROID PANEL WITH TSH, 3RD GENERATION (7444) L IPID PANEL (6020) Madan Mack MD follow up : H [...] oderate LV dysfunction. N ormal renal arteries. [facility] (12/17/2008) C arotid Doppler/Duplex: Normal (12/09/2009) C [...] oderate LV dysfunction. N ormal renal arteries. [facility] (12/17/2008) C arotid Doppler/Duplex: Normal (12/09/2009) Madan [...] oderate LV dysfunction. N ormal renal arteries. [facility] (12/17/2008) C arotid Doppler/Duplex: Normal (12/09/2009) E [...] significant valvular abnormalities. (12/09/2009) Orders: Kishore CHENG ([id number]) Madan Mack MD routine : H er [...] oderate LV dysfunction. N ormal renal arteries. [facility] (12/17/2008) C arotid Doppler/Duplex: Normal GC (12/09/2009) [...] oderate LV dysfunction. N ormal renal arteries. [facility] (12/17/2008) C arotid Doppler/Duplex: Normal GC (12/09/2009) [...] oderate LV dysfunction. N ormal renal arteries. [facility] (12/17/2008) C arotid Doppler/Duplex: Normal GC (12/09/2009) [...] oderate LV dysfunction. N ormal renal arteries. [facility] (12/17/2008) C arotid Doppler/Duplex: Normal GC (12/09/2009) Madan Mack MD 1 month follow-up [facility] Echo: H er updated medication list for [...] oderate LV dysfunction. N ormal renal arteries. [facility] (12/17/2008) Madan Mack MD 1 month follow-up [facility] Echo: H er updated medication list for this problem includes: Aspirin 81 Mg Tabs (Aspirin) ..... One tab. daily Lisinopril-hydrochlorothiazide Tabs (Lisinopril-hydrochlorothiazide tabs) ..... 1 tablet by mouth daily Metoprolol Succinate 25 Mg Tb24 (Metoprolol succinate) ..... 1/4 tab twice daily (6.25mg) daily BP today: 144/98 P rior BP: 127/85 (01/08/2009) Madan Mack MD 1 month follow-up [facility] Echo: H er updated medication list for this problem includes: Levothroid 150 Mcg Tabs (Levothyroxine sodium) ..... One tab. daily Madan Mack MD 1 month follow-up with Echo Hamlet Mack MD 1 month follow-up [facility] Echo: H er updated medication list for [...] oderate LV dysfunction. N ormal renal arteries. [facility] (12/17/2008) Madan Mack MD post cabg: H [...]
--- OUTSIDE RECORDS SUMMARY | 2025-01-14 10:16 | XMS_ITS | Referral Summary ---
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 Active Problems Problem Noted Date Diagnosed Date Cardiomyopathy, ischemic 08/07/2022 Essential hypertension 08/07/2022 Hypercholesteremia 08/07/2022 Other emphysema 08/07/2022 Hx of CABG 08/01/2022 S/P MVR (mitral valve repair) 08/01/2022 Primary osteoarthritis of right hip 03/10/2018 Chest pain due to coronary artery disease 2017 Coronary artery disease of n ative artery of [place] heart with stable angina pectoris 12/10/2017 Family [...] on file Legal Sex Female 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 Gender Identity Female 07/25/2022 9:56 AM INDUSTRIAL SERVICER Sexual Orientation Not on file Occupation Industry [...] on file Medical Devices Implanted Type Area Motor Overhauler Device Identifier Shelf Expiration Date Model / Serial / Lot [employer] [id number] Trilogy 6.5mm 30mm Self Tap Acetabular Cortical Screw Bone - [id number] Implanted:Qty: 1 on 03/18/2018 by Jered Rudd MD at [facility] Screw Right: Hip [employer] 02/09/2027 [id number] / / [id number] [employer] [id number] G7 52mm Limit Hole Hip E Hemisphere Shell Acetabular Pps - [id number] Implanted:Qty: 1 on 03/18/2018 by Jered Rudd MD at [facility] Right: Hip [employer] 02/15/2028 [id number] / / [id number] Liner Acetabular G7 E1 E Id36 Mm Hip High Wall - [id number] Implanted:Qty: 1 on 03/18/2018 by Jered Rudd MD at [facility] Right: Hip [employer] 11/23/2022 [id number] / / [id number] [employer] [id number] G7 36mm Type 1 Hip -6mm Offset Head Femoral Cocr - [id number] Implanted:Qty: 1 on 03/18/2018 by Jered Rudd MD at [facility] Right: Hip [employer] [id number] 01/24/2028 [id number] / / [id number] [employer] [id number] Taperloc 134mm Type 1 Full Profile Hip 133d 7 High Offset Taper - [id number] Implanted:Qty: 1 on 03/18/2018 by Jered Rudd MD at [facility] Right: Hip [employer] [id number] 12/11/2023 [id number] / / [id number] Insurance CLAIMS CLAIMS [facility] CLAIMS Advance Directives For more information, please contact: [phone] * Full Code (Latest Code Status on File) Date Activated Date Inactivated Comments 10/05/2018 5:25 PM 10/08/2018 8:41 PM * Full Code Date Activated Date Inactivated Comments 03/18/2018 1:45 PM 03/20/2018 4:36 PM * Full Code Date Activated Date Inactivated Comments 12/09/2017 3:38 PM 12/14/2017 12:34 AM Care Teams Surgical First Assistant Relationship Specialty Start Date End Date Eren Chávez DO PCP - General Family Medicine 01/16/23 Tomi Florentino, PT Physical Therapist Physical Therapy 02/11/18 Lázaro Somers MD Surgeon Trauma Surgery 10/08/18
[2025-01-14 21:21] LABS: Alanine Aminotransferase 18 U/L (6-35); Albumin Level 4.4 g/dL (3.5-5.1); Alkaline Phosphatase 104 U/L (38-126); Anion Gap 9 mmol/L (4-12); Aspartate Amino Transferase 78 U/L (14-36); Bilirubin,Total 1.2 mg/dL (0.2-1.3); Blood Urea Nitrogen 16 mg/dL (7-17); Calcium 9.9 mg/dL (8.4-10.2); Carbon Dioxide 24 mmol/L (22-30); Chloride 106 mmol/L (98-107); Cholesterol 186 mg/dL (0-200); Estimated Glomerular Filt Rate 57; Glucose 81 mg/dL (65-110); HDL Direct 90 mg/dL; Sodium 139 mmol/L (137-145); Total Protein 6.9 g/dL (6.3-8.2); Triglycerides 98 mg/dL (<150)
[2025-01-14 21:23] LABS: Vitamin D 25 Hydroxy 20.9 ng/mL
[2025-01-14 21:32] LABS: LDL Cholesterol Direct 52 mg/dL
[2025-01-14 21:55] LABS: Thyroid Stimulating Hormone 0.746 uIU/mL (0.465-4.680)
== END 2025-01-14 10:03 | disposition home or self-care (01) ==
LOC: ANHGOSHLAB 10:03
PROVIDERS: PCP Emergency Medicine; Visit Provider Emergency Medicine
DX: E78.5 Hyperlipidemia, unspecified (principal); R53.83 Other fatigue; E55.9 Vitamin D deficiency, unspecified
CPT/HCPCS: 36415; 80053; 80061; 82306; 84443

== ENCOUNTER 2025-01-23 11:54 | Outpatient (CLI) | payer OTHER, SELFPAY ==
--- NOTE | ~2025-01-23 | XR_ITS ---
[XR ribs LT 2V ] INDICATION: Left chest pain TECHNIQUE: Frontal projection of the upper left ribs, frontal projection of the lower left ribs, obli que projection of all the left ribs, frontal inspiratory chest x-ray for interpretation. FINDINGS: There are no displaced rib fractures identified. There are no soft tissue abnormality see n. Small left pleural effusion. Left basilar airspace disease, suspicious for pneumonia. Status post median sternotomy for CABG. IMPRESSION: 1: No acute displaced rib fractures. 2: Left basilar airspace disease, suspicious for pneumonia. 3: Small left pleural effusion. Reviewed, dictated and finalized at location B.
== END 2025-01-23 11:55 | disposition home or self-care (01) ==
LOC: MICIMG 11:55
PROVIDERS: PCP Emergency Medicine; Visit Provider Emergency Medicine
DX: R07.81 Pleurodynia (principal); J90 Pleural effusion, not elsewhere classified
CPT/HCPCS: 71100

== ENCOUNTER 2025-04-22 09:53 | Outpatient (CLI) | payer OTHER, SELFPAY ==
--- OUTSIDE RECORDS SUMMARY | 2025-04-22 10:43 | XMS_ITS | Clinical Summary ---
Author Organization [facility] Address [address] [place] [address] Care Team Providers Care Library Specialist Name Role Phone Tomi Florentino PT Unavailable Unavailable Lázaro Somers MD Unavailable [phone] Eren Chávez DO Primary Care Provider [phone] Allergies Active Allergy Reactions Criticality Noted Date [...] 1 tablet (75 mcg total) by mouth utility aide before breakfast Active Active Problems Problem Noted Date Diagnosed Date Cardiomyopathy, ischemic 08/07/2022 Essential hypertension 08/07/2022 Hypercholesteremia 08/07/2022 Other emphysema 08/07/2022 Hx of CABG 08/01/2022 S/P MVR (mitral valve repair) 08/01/2022 Primary osteoarthritis of right hip 03/10/2018 Chest pain due to coronary artery disease 2017 Coronary artery disease of n ative artery of [place] heart with stable angina pectoris 12/10/2017 Family [...] and vomiting) COPD (chronic obstructive pulmonary disease) GERD (gastroesophageal reflux disease) Constipation Hypothyroidism Depression Anxiety Arthritis Sciatica Vertigo Pulmonary emboli (HCC) DVT (deep venous thrombosis) Atherosclerosis of coronary artery 08/15/2013 Diverticulitis Family [...] Grandmother Sruthi Coronary artery disease Mother Rere Mullins amilmartha history of coronary artery disease - [...] on file 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 Gender Identity Female 07/25/2022 9:56 AM SHEARING SHED WORKER Sexual Orientation Not on file Occupation Industry [...] season) 2024 11/15/2020, 10/24/2020 Influenza Vaccine (#1) 2025 , 05/08/2020, 06/27/2019, Additional history exists Zoster Vaccine Completed 07/17/2020, 05/08/2020 Medical Devices Implanted Type Area Nuclear Medicine Supervisor Device Identifier Shelf Expiration Date Model / Serial / Lot [employer] [id number] Trilogy 6.5mm 30mm Self Tap Acetabular Cortical Screw Bone - [id number] Implanted:Qty: 1 on 03/18/2018 by Jered Rudd MD at [facility] Screw Right: Hip [employer] 02/09/2027 [id number] / / [id number] [employer] [id number] G7 52mm Limit Hole Hip E Hemisphere Shell Acetabular Pps - [id number] Implanted:Qty: 1 on 03/18/2018 by Jered Rudd MD at [facility] Right: Hip [employer] 02/15/2028 [id number] / / [id number] Liner Acetabular G7 E1 E Id36 Mm Hip High Wall - [id number] Implanted:Qty: 1 on 03/18/2018 by Jered Rudd MD at [facility] Right: Hip [employer] 11/23/2022 [id number] / / [id number] [employer] [id number] G7 36mm Type 1 Hip -6mm Offset Head Femoral Cocr - [id number] Implanted:Qty: 1 on 03/18/2018 by Jered Rudd MD at [facility] Right: Hip [employer] [id number] 01/24/[id number] / / [id number] [employer] [id number] Taperloc 134mm Type 1 Full Profile Hip 133d 7 High Offset Taper - [id number] Implanted:Qty: 1 on 03/18/2018 by Jered Rudd MD at [facility] Right: Hip [employer] [id number] 12/11/2023 [id number] / / [id number] Insurance CLAIMS [place] [address] [address] CLAIMS Advance Directives For more information, please contact: [phone] * Full Code (Latest Code Status on File) Date Activated Date Inactivated Comments 10/05/2018 5:25 PM 10/08/2018 8:41 PM * Full Code Date Activated Date Inactivated Comments 03/18/2018 1:45 PM 03/20/2018 4:36 PM * Full Code Date Activated Date Inactivated Comments 12/09/2017 3:38 PM 12/14/2017 12:34 AM Care Teams Library Specialist Relationship Specialty Start Date End Date Eren Chávez DO PCP - General Family Medicine 01/16/23 Tomi Florentino, PT Physical Therapist Physical Therapy 02/11/18 Lázaro Somers MD Surgeon Trauma Surgery 10/08/18
--- OUTSIDE RECORDS SUMMARY | 2025-04-22 10:43 | XMS_ITS | Clinical Summary ---
Author Organization [facility] Address [address] [place] [id number] Care Team Providers Care Manager Steel Name Role Phone ElliotEren rivera Primary Care Provider [phone] Social History Tobacco Use Types Packs/Day Years Used Date Smoking Tobacco: Never Assessed Comments Unknown Sex and Gender Information Value Date Recorded Sex Assigned at Not on file Legal Sex Female 2:49 PM CDT Gender Identity Not on file Sexual Orientation Not on file Plan of Treatment Health Maintenance Due Date Last Done Comments Cervical Cancer Screening Pa p Smear (Age 30 to 64) Every 3 Years 1961 Colorectal Cancer Screening Colonoscopy (10 Years) 1961 Annual Physical 02/09/1964 Hepatitis C 1979 DTaP, Tdap and Td Vaccines ( 1 - Tdap) 02/09/1980 Cervical Cancer Screening Pa p with HPV Testing (Age 30 to 64) Every 5 Years 1991 Cervical Cancer Screening wi th HPV 1991 Mammogram Screening 2001 Pneumococcal Vaccine: 50+ Years (2 of 2 - PCV) 09/13/2014 09/13/2013, 09/03/2012 COVID-19 Vaccine ( - 2024-2 6 season) 2025 11/15/2020, 10/24/2020 RSV Immunization or 60+ Years (1 - 1-dose 75+ series) 02/09/2036 Zoster Vaccines Completed 07/17/2020, 05/08/2020 Meningococcal B Vaccine Aged Out No l onger eligible based on patient's age to complete this topic Meningococcal Vaccine Aged Out No gloria dimas eligible based on patient's age to complete this topic RSV Immunizations Under 20 Months Aged Out No longer eligible b ased on patient's age to complete this topic Insurance [facility] Care Teams Manager Steel Relationship Specialty Start Date End Date Eren Chávez DO [facility] [address] [address] PCP - General FAMILY PRACTICE 10/25/23
[2025-04-22 13:02] LABS: Alanine Aminotransferase 18 U/L (6-35); Albumin Level 4.4 g/dL (3.5-5.1); Alkaline Phosphatase 96 U/L (38-126); Aspartate Amino Transferase 81 U/L (14-36); Bilirubin,Total 1.9 mg/dL (0.2-1.3); Cholesterol 187 mg/dL (0-200); HDL Direct 79 mg/dL; Total Protein 7.0 g/dL (6.3-8.2); Triglycerides 127 mg/dL (<150)
== END 2025-04-22 09:54 | disposition home or self-care (01) ==
LOC: ANHGOSHLAB 09:53
PROVIDERS: PCP Emergency Medicine; Visit Provider Emergency Medicine
DX: R79.89 Other specified abnormal findings of blood chemistry (principal); E78.5 Hyperlipidemia, unspecified
CPT/HCPCS: 36415; 80061; 80076

== ENCOUNTER 2025-06-04 13:49 | Outpatient (CLI) | payer OTHER, SELFPAY ==
--- NOTE | ~2025-06-04 | MM_ITS ---
EXAMINATION: MM screening isai BI w alexa HISTORY: Screening TECHNIQUE: Craniocaudal and mediolateral oblique 3-D tomosynthesis images were obtained and synthetic 2-D images were generated. CAD analysis was submitted and interpreted. COMPARISON: 07/22/2022 BREAST PARENCHYMAL COMPOSITION: The breasts are almost entirely fatty. FINDINGS: There is no evidence of suspicious mass, calcification, or architectural distortion to suggest malignancy in either breast. IMPRESSION: 1. No mammographic evidence of malignancy. 2. Recommend routine screening mammography in one year. BI-RADS Category 1: Negative Reviewed, dictated and finalized at location B.
== END 2025-06-04 13:50 | disposition home or self-care (01) ==
PROVIDERS: PCP Emergency Medicine; Visit Provider Emergency Medicine
DX: Z12.31 Encounter for screening mammogram for malignant neoplasm of breast (principal)
CPT/HCPCS: 77063; 77067

== ENCOUNTER 2025-08-12 09:39 | Outpatient (CLI) | payer OTHER, SELFPAY ==
--- OUTSIDE RECORDS SUMMARY | 2025-08-12 09:46 | XMS_ITS | Clinical Summary ---
Author Organization [facility] Address [address] [place] [address] Care Team Providers Care Cue Worker Name Role Phone Tomi Florentino PT Unavailable Unavailable Lázaro Somers MD Unavailable [phone] Eren Chávez DO Primary Care Provider [phone] Allergies Active Allergy Reactions Criticality Noted Date Comments Adhesive Rash High 06/06/2022 Adhesive Tape-Silicones Itching Low 03/05/2018 EKG leads cause itching also Codeine Other (See comments) Low hypersensitivity Diclofenac Chest tightness Medium 03/05/2018 Possible cause of heart attack Medications cetirizine (ZyrTEC) 10 mg tablet Take 1 [...] mg total) by mouth daily Active losartan potassium (LOSARTAN ORAL) Take 25 mg by mouth 2 (two) times a day [address] (PROTONIX) 40 mg EC tablet 3 Active biotin 5,000 mcg tablet,disinteg rating 1 tablet Active multivit-min/ir on fum/folic ac (ONE-A-DAY WOMEN'S COMPLETE ORAL) Take by mouth A ctive levothyroxine (SYNTHROID) 75 mcg tablet Take 1 tablet (75 mcg total) by mouth alternative energy engineer before breakfast Active evolocumab (REPATHA) syringe syringe Inject 1 mL (140 mg total) under the skin every 14 (fourteen) days 6 mL 3 5 Active evolocumab (REPATHA) syringe syringe Inject 1 mL (140 mg total) under the skin every 14 (fourteen) days 1 mL 6 5 07/29/20 25 Discontinu ed(Reorder ) evolocumab (REPATHA) syringe syringe Inject 1 mL (140 mg total) under the skin every 14 (fourteen) days 1 mL 6 5 07/29/20 25 Discontinu ed(Reorder ) Active Problems Problem Noted Date Diagnosed Date Cardiomyopathy, ischemic 08/07/2022 Essential hypertension 08/07/2022 Hypercholesteremia 08/07/2022 Other emphysema 08/07/2022 Hx of CABG 08/01/2022 S/P MVR (mitral valve repair) 08/01/2022 Primary osteoarthritis of right hip 03/10/2018 Chest pain due to coronary artery disease 2017 Coronary artery disease of n ative artery of [place] heart with stable angina pectoris 12/10/2017 Family history of mitral valve repair 12/10/2017 Atherosclerosis of coronary artery 08/15/2013 Resolved Problems Problem Noted Date Diagnosed Date Resolved Date Abscess of left groin 11/20/20182021 Myocardial infarction 03/19/20182017 Encounters Date Type Department Care Team Description 07/29/2025 Telephone [facility] Cardiology [address] [facility] [address] [place] [address] Rafy Pierre MD 06/23/2025 2:00 PM ROUND BONER Office Visit [facility] Cardiology at [address] [place] [address] Rafy Pierre MD Hx of CABG (Primary Dx); Family history of mitral valve repair; Cardiomyopathy, ischemic; Need for lipid screening from Last 3 Months Surgical History Surgery Date Site/Laterality Comments HYSTERECTOMY CHOLECYSTECTOMY FOOT SURGERY Right CORONARY ARTERY BYPASS GRAFT 2007, 2012 MITRAL VALVE REPAIR CORONARY ANGIOPLASTY APPENDECTOMY LAPAROSCOPY TOTAL HIP ARTHROPLASTY Right TUBAL LIGATION 1981 Medical History Medical History Date Comments Coronary [...] Coronary artery disease Mother Rere Johnston F amily history of coronary artery disease - (Added [...] Mother's Sister 1 Caroline Mother's Sister 2 [place] Social History Tobacco Use Types Packs/Day Years [...] on file Legal Sex Female 6:01 PM ROUND BONER Gender Identity Female 07/25/2022 9:56 AM ROUND BONER Sexual Orientation Not on file Occupation Industry Job Start Date Job End Date retired Not on file Not on file Not on file Last Filed Vital Signs Vital Sign Reading Time Taken Comments Blood Pressure 134/88 06/23/2025 2:04 PM ROUND BONER Pulse 72 06/23/2025 2:04 PM ROUND BONER Temperature 36.9 C (98.4 F) 03/14/2019 2:53 PM CDT Respiratory Rate 03/14/2019 4:50 PM CDT Oxygen Saturation 99% 06/23/2025 2:04 PM ROUND BONER Inhaled Oxygen Concentration - - Weight 74.4 kg (164 lb 1.6 oz) 06/23/2025 2:04 P M ROUND BONER Height 154.9 cm (5' 1) 06/23/2025 2:04 PM ROUND BONER Body Mass Index 31.01 06/23/2025 2:04 PM ROUND BONER Plan of Treatment Health Maintenance Due Date Last Done Comments Breast Cancer Screening-Mammogram 1961 Colon Cancer Screening-Colonoscopy 1961 Depression Screening 1961 Hepatitis C Screening 1961 DTaP/Tdap/Td Vaccine (1 - Tdap) 02/09/1972 Hepatitis B Screening 1979 Regular Well Visit/Exam 18-64 1979 Pneumococcal vaccine <65 (2 of 2 - PCV) 09/13/2014 09/13/2013, 09/03/2012 Covid-19 Vaccine (3 - 2024-2 6 season) 2025 11/15/2020, 10/24/2020 Influenza Vaccine (#1) 2025 , 04/21/2021, 05/08/2020, Additional history exists Zoster Vaccine Completed 07/17/2020, 05/08/2020 Medical Devices Implanted Type Area Poultry Eviscerator Device Identifier Shelf Expiration Date Model / Serial / Lot [employer] [id number] Trilogy 6.5mm 30mm Self Tap Acetabular Cortical Screw Bone - [id number] Implanted:Qty: 1 on 03/18/2018 by Jered Rudd MD at [facility] Screw Right: Hip [employer] 02/09/2027 [id number] / / [id number] [employer] [id number] G7 52mm Limit Hole Hip E Hemisphere Shell Acetabular Pps - [id number] Implanted:Qty: 1 on 03/18/2018 by Jered Rudd MD at [facility] Right: Hip [employer] 02/15/2028 [id number] / / [id number] Liner Acetabular G7 E1 E Id36 Mm Hip High Wall - [id number] Implanted:Qty: 1 on 03/18/2018 by Jered Rudd MD at [facility] Right: Hip [employer] 11/23/2022 [id number] / / [id number] [employer] [id number] G7 36mm Type 1 Hip -6mm Offset Head Femoral Cocr - [id number] Implanted:Qty: 1 on 03/18/2018 by Jered Rudd MD at [facility] Right: Hip [employer] [id number] 01/24/2028052204 / / [id number] [employer] [id number] Taperloc 134mm Type 1 Full Profile Hip 133d 7 High Offset Taper - [id number] Implanted:Qty: 1 on 03/18/2018 by Jered Rudd MD at [facility] Right: Hip [employer] [id number] 12/11/2023 [id number] / / [id number] Procedures Procedure Name Priority Date/Time Associated Diagnosis Comments POCT LIPID PANEL Routine 06/23/2025 3:16 PM ROUND BONER Need for lipid screening from Last 3 Months Results * (ABNORMAL) POCT lipid panel (06/23/2025 3:16 PM ROUND BONER) Cholesterol, POC 244 <200 MG/DL Comment:GLU = 90 Triglycerides, POC 650(A) <=149 mg/dL Comment:>650 Cholesterol Total, POC 244(A) 30 - 199 mg/dL Capillary blood 06/23/2025 3 :16 PM ROUND BONER us Rafy Pierre MD POINT OF CARE TEST ORDER EDY Final Result from Last [address] [place] [place] [address] CLAIMS [id number] [place] [address] CLAIMS CLAIMS Advance Directives For more information, please contact: [phone] * Full Code (Latest Code Status on File) Date Activated Date Inactivated Comments 10/05/2018 5:25 PM 10/08/2018 8:41 PM * Full Code Date Activated Date Inactivated Comments 03/18/2018 1:45 PM 03/20/2018 4:36 PM * Full Code Date Activated Date Inactivated Comments 12/09/2017 3:38 PM 12/14/2017 12:34 AM Care Teams Cue Worker Relationship Specialty Start Date End Date Eren Chávez DO PCP - General Family Medicine 01/16/23 Tomi Florentino, PT Physical Therapist Physical Therapy 02/11/18 Lázaro Somers MD Surgeon Trauma Surgery 10/08/18
--- OUTSIDE RECORDS SUMMARY | 2025-08-12 09:46 | XMS_ITS | Encounter Summary ---
Author Organization [facility] Address [address] [place] [address] Care Team Providers Care Ship Fastener Name Role Phone BeeTomi valentine PT Unavailable Unavailable Lázaro Somers MD Unavailable [phone] Eren Chávez DO Primary Care Provider Encounter Details Date Type Department Care Team (Late st Contact Info) Description 07/29/[address] [facility] Cardiology [address] [place] [address] Rafy Pierre MD [address] [place] [address] Social History Tobacco Use Types Packs/Day Years Used Date Smoking Tobacco: Former Cigarettes 0.5 10 0 03/05/2007 - 03/05/2017 Smokeless Tobacco: Never Alcohol Use Standard Drinks/Week Comments Yes 0 (1 standard drink = 0.6 oz pur e alcohol) rarely Comments No Sex and Gender Information Value Date Recorded Sex Assigned at Not on file Legal Sex Female 6:01 PM EMERGENCY DEPARTMENT NURSE Gender Identity Female 07/25/2022 9:56 AM EMERGENCY DEPARTMENT NURSE Sexual Orientation Not on file Occupation Industry Job Start Date Job End Date retired Not on file Not on file Not on file documented as of this encounter Miscellaneous Notes * Telephone Encounter - Madison Guy - 07/29/2025 11:20 AM EMERGENCY DEPARTMENT NURSE Pt called to request a 90 day supply of Repatha be sent to [facility]. Also, pt will like a call once the request is completed. Cb : [phone] GENCY DEPARTMENT NURSE documented in this encounter Plan of Treatment Not on file documented as of this encounter Visit Diagnoses Not on filedocumented in this encounter Care Teams Ship Fastener Relationship Specialty Start Date End Date Eren Chávez DO PCP - General Family Medicine 01/16/23 Tomi Florentino, PT Physical Therapist Physical Therapy 02/11/18 Lázaro Somers MD Surgeon Trauma Surgery 10/08/18 documented as of this encounter
--- OUTSIDE RECORDS SUMMARY | 2025-08-12 09:46 | XMS_ITS | Clinical Summary ---
Author Organization [facility] System Address [address] [place] [id number] Care Team Providers Care Production Lapping Machine Operator Name Role Phone Rafy Torres MD Primary Care Provider [phone] Encounters Date Type Department Care Team Description 05/26/2025 1:38 PM CDT - 05/26/2025 11:59 PM CDT Hospital Encounter [facility] [place] [address] Rafy Torres MD Discharge Disposition: Home or Self Care (Routine Discharge) 05/26/2025 Travel 05/19/2025 Travel from Last 3 Months Social History Tobacco Use Types Packs/Day Years Used Date Smoking Tobacco: Never Assessed Comments Unknown Sex and Gender Information Value Date Recorded Sex Assigned at Female 05/19/2025 7:36 AM CDT Legal Sex Female 2:49 PM CDT Gender [...] Screening with HPV 1991 Mammogram Screening 2001 Pneumococcal Vaccine: 50+ Years (2 of 2 - PCV) 09/13/2014 09/13/2013, 09/03/2012 COVID-19 Vaccine (3 - season) 2025 11/15/2020, 10/24/2020 Influenza Adult (#1) 2025 07/09/2023, 06/06/2022, 04/21/2021, Additional history exists RSV Immunization or 60+ Years (1 - 1-dose 75+ series) 02/09/2036 Hepatitis A Vaccines Aged Out 09/12/2002 No long er eligible based on patient's age to complete [...] on patient's age to complete this topic Procedures Procedure Name Priority Date/Time Associated Diagnosis Comments CT ABD+PEL W CON Routine 05/26/2025 2:04 PM CDT Unspecified abdominal pain from Last 3 Months Results * CT ABD+PEL W CON (05/26/2025 2:04 PM CDT) Anatomical Region Laterality Modality Abdomen Computed Tomogra phy 05/29/2025 1:31 PM CDT Impressions 05/29/2025 3:25 PM CDT Impression: 1. No acute abnormality identified within the abdomen or pelvis. 2. Hepatic steatosis. 3. Diverticulosis without diverticulitis. 4. Other chronic and nonemergent findings as above. The attending radiologist has reviewed the image(s) and agrees with the content of this report. Ordered By: RAFY TORRES Interpreted By: Mamta Vaca MD, 05/29/2025 1:31 PM Narrative 05/29/2025 3:25 PM CDT [facility] [address] [place], [place] [address] Examination: CT abdomen and pelvis with IV contrast. Clinical Information: Intermittent left-sided abdominal pain for one year. Comparison:None Technique: IV contrast: 100 mL Isovue 370. Oral contrast: None. Technical comments: Standard technique. Dose reduction: This CT exam was performed using one or more of the following dose reduction techniques: Automated exposure control, adjustment of the mA and/or kV according to patient size, and/or use of iterative reconstruction technique. Findings: LOWER CHEST Heart is normal in size. Mitral valve replacement and sternotomy wires appreciated. Coronary artery disease. Lung bases are clear. No pleural or pericardial effusions. UPPER ABDOMEN Liver and bile ducts: No focal liver lesion. Hepatic steatosis. Portal vein and hepatic veins are patent. No biliary dilatation. Gallbladder: Cholecystectomy. Pancreas: Pancreas is normal in size. No masses or peripancreatic fat stranding appreciated. Spleen: Spleen is normal in size. Calcified granuloma appreciated. RETROPERITONEUM Adrenals: Adrenal glands are normal in size and shape. Kidneys: Kidneys are enhancing symmetrically. A single small subcentimeter hypodensities identified within each kidney, technically too small to characterize but likely to represent benign cysts. No specific follow-up imaging is required per consensus guidelines. Lymph nodes: No lymphadenopathy in the abdomen or pelvis. BOWEL AND PERITONEUM Bowel: Normal in caliber and wall thickness. Extensive diverticulosis without diverticulitis. Normal appendix. Free air or fluid: None. VASCULATURE Visceral arteries and portal venous system are normally patent. Atherosclerotic disease. PELVIS Bladder is unremarkable. Hysterectomy. BONES/SOFT TISSUES Tiny umbilical hernia containing only fat. Right total hip replacement hardware appreciated. Levoscoliosis of the spine. Degenerative disc disease and spondylosis of the thoracic and lumbar spine. Anterolisthesis of L5 on S1. Grade 1 retrolisthesis of L2-3. Sclerotic lesions on the left pelvis and acetabulum, most likely bone islands. Procedure Note Nitin Rossi MD - 05/29/2025 [facility] [address] [place], [place] [address] Examination: CT abdomen and pelvis with IV contrast. Clinical Information: Intermittent left-sided abdominal pain for oneyear. Comparison:None Technique: IV contrast: 100 mL Isovue 370. Oral contrast: None. Technical comments: Standard technique. Dose reduction: This CT exam was performed using one or more of thefollowing dose reduction techniques: Automated exposure control,adjustment of the mA and/or kV according to patient size, and/or use ofiterative reconstruction technique. Findings: LOWER CHEST Heart is normal in size. Mitral valve replacement and sternotomy wiresappreciated. Coronary artery disease. Lung bases are clear. No pleural orpericardial effusions. UPPER ABDOMEN Liver and bile ducts: No focal liver lesion. Hepatic steatosis. Portalvein and hepatic veins are patent. No biliary dilatation. Gallbladder: Cholecystectomy. Pancreas: Pancreas is normal in size. No masses or peripancreatic fatstranding appreciated. Spleen: Spleen is normal in size. Calcified granuloma appreciated. RETROPERITONEUM Adrenals: Adrenal glands are normal in size and shape. Kidneys: Kidneys are enhancing symmetrically. A single small subcentimeterhypodensities identified within each kidney, technically too small tocharacterize but likely to represent benign cysts. No specific follow- upimaging is required per consensus guidelines. Lymph nodes: No lymphadenopathy in the abdomen or pelvis. BOWEL AND PERITONEUM Bowel: Normal in caliber and wall thickness. Extensive diverticulosiswithout diverticulitis. Normal appendix. Free air or fluid: None. VASCULATURE Visceral arteries and portal venous system are normally patent.Atherosclerotic disease. PELVIS Bladder is unremarkable. Hysterectomy. BONES/SOFT TISSUES Tiny umbilical hernia containing only fat. Right total hip replacementhardware appreciated. Levoscoliosis of the spine. Degenerative discdisease and spondylosis of the thoracic and lumbar spine. Anterolisthesisof L5 on S1. Grade 1 retrolisthesis of L2-3. Sclerotic lesions on the leftpelvis and acetabulum, most likely bone islands. Impression: 1. No acute abnormality identified within the abdomen or pelvis. 2. Hepatic steatosis. 3. Diverticulosis without diverticulitis. 4. Other chronic and nonemergent findings as above. The attending radiologist has reviewed the image(s) and agrees with thecontent of this report. Ordered By: RAFY TORRES Interpreted By: Mamta Vaca MD, 05/29/2025 1:31 PM us Rafy Torres MD CT Final Result from Last 3 Months Insurance Care Teams Production Lapping Machine Operator Relationship Specialty Start Date End Date Rafy Torres MD [id number] [place] [address] PCP - General INTERNAL MEDICINE 05/07/25
[2025-08-12 19:05] LABS: Alanine Aminotransferase 22 U/L (6-35); Albumin Level 4.3 g/dL (3.5-5.1); Alkaline Phosphatase 98 U/L (38-126); Anion Gap 7 mmol/L (4-12); Aspartate Amino Transferase 55 U/L (14-36); Bilirubin,Total 1.2 mg/dL (0.2-1.3); Blood Urea Nitrogen 15 mg/dL (7-17); Calcium 10.2 mg/dL (8.4-10.2); Carbon Dioxide 29 mmol/L (22-30); Chloride 104 mmol/L (98-107); Cholesterol 169 mg/dL (0-200); Estimated Glomerular Filt Rate 56; Glucose 87 mg/dL (65-110); HDL Direct 85 mg/dL; Potassium 4.8 mmol/L (3.4-5.0); Sodium 140 mmol/L (137-145); Total Protein 6.9 g/dL (6.3-8.2); Triglycerides 156 mg/dL (<150)
[2025-08-12 19:37] LABS: Thyroid Stimulating Hormone 2.180 uIU/mL (0.465-4.680)
== END 2025-08-12 09:40 | disposition home or self-care (01) ==
LOC: ANHGOSHLAB 09:39
PROVIDERS: PCP Emergency Medicine; Visit Provider Emergency Medicine
DX: E78.5 Hyperlipidemia, unspecified (principal); E55.9 Vitamin D deficiency, unspecified; R53.83 Other fatigue
CPT/HCPCS: 36415; 80053; 80061; 82306; 84443